=== PATIENT | male | born 1980 | race Hispanic/Latino ===

== ENCOUNTER → 2023-12-12 | Emergency (ER) | payer OTHER ==
--- OUTSIDE RECORDS SUMMARY | 2023-12-12 18:13 | XMS REPORT | Continuity of Care Document ---
Author Name Unknown Address [address] [facility] [address]. [address] [place] [address] [facility] thconnect Address [address] [facility]. [address] [place] [address] Care Team Providers Care Guitar Player Name Role Phone Pcp, Patient Does Not Have A Primary Care Physic maine SAYRA BONDS Attending Clinician Unavailabl Sayra Holley Attending Clinician [phone] Doctor Unassigned, Vian Attending Clinician U navailable Allergies, Adverse Reactions, Alerts Allergy Name Allergy Type Status Severity Reaction(s) Onset Date Inactive Date Treating Clinician Comments Source NO KNOWN ALLERGIE S Drug Class Active [facility] Social History Social Habit Start Date Stop Date Quantity Comments Source Exposure to SARS-CoV-2 (event) 2022-12-24 00:00:00 2023-01-03 14:00:00 Not sure [facility] Sex Assigned At 1980 00:00:00 1980 00:00:00 [facility] Smoking Status Start Date Stop Date Source Tobacco smoking consumption unknown [facility] Medications Ordered Medication Name Filled Medication Name Start Date Stop Date Current Medication? Ordering Clinician Indication Dosage Frequency Signature (SIG) Comments Components Source imiquimod 5 % cream 01-03 00:00: 00 Yes [id number] 1{packe t} Apply 1 Each to area(s) every Friday, Friday and Friday. Rub into area(s) until not visible. After 6-10 hours, wash off with mild soap and water. Max use - 16 weeks. [facility] imiquimod 5 % cream 01-03 00:00: 00 Yes [id number] 1{packe t} Apply 1 Each to area(s) every Friday, Friday and Friday. Rub into area(s) until not visible. After 6-10 hours, wash off with mild soap and water. Max use - 16 weeks. [facility] TAKE 1 TABLET DAILY. 2021-11 00:00: 00 No TAKE 1 TABLET DAILY. 04-16 00:00: 00 No levothyroxi ne 175 mcg tablet 04-16 00:00: 00 No 1mcg Dose Unknown 4-05 00:00: 00 No Dose Unknown 4-05 00:00: 00 No Dose Unknown 0 4-05 00:00: 00 No Dose Unknown 0 4-05 00:00: 00 No Dose Unknown 0 4-05 00:00: 00 No Dose Unknown 0 4-05 00:00: 00 No Dose Unknown 0 4-05 00:00: 00 No Dose Unknown 0 4-05 00:00: 00 No Dose Unknown 0 4-05 00:00: 00 No Dose Unknown 0 4-05 00:00: 00 No TAKE 1 TABLET DAILY. 2020-11 00:00: 00 No levothyroxi ne 175 mcg tablet 2020-11 00:00: 00 No 1mcg ibuprofen 800 mg tablet 2020-11 1-05 00:00: 00 No 1mg Dose Unknown 2020-11 1-05 00:00: 00 No TAKE 1 TABLET DAILY. 08-15 00:00: 00 No levothyroxi ne 175 mcg tablet 16 00:00: 00 No 1mcg TAKE 1 TABLET DAILY. 05-26 00:00: 00 No TAKE 1 TABLET DAILY. 03-08 00:00: 00 No levothyroxi ne 175 mcg tablet - 00:00: 00 No 1mcg levothyroxi ne 175 mcg tablet 0 2-08 00:00: 00 No 1mcg Altoprev 60 mg tablet,exte nded release 0 2-05 00:00: 00 No 1mg levothyroxi ne 175 mcg tablet 0 2-05 00:00: 00 No 1mcg Altoprev 60 mg tablet,exte nded release 1 2- 00:00: 00 No 1mg levothyroxi ne 175 mcg tablet 2019-11 2- 00:00: 00 No 1mcg Altoprev 60 mg tablet,exte nded release 2019-11 2- 00:00: 00 No 1mg levothyroxi ne 175 mcg tablet 2019-11 2- 00:00: 00 No 1mcg lovastatin 40 mg tablet 1 1-30 00:00: 00 No 1mg levothyroxi ne 150 mcg tablet 1 1-30 00:00: 00 No 1mcg lovastatin 40 mg tablet 0 8-05 00:00: 00 No 1mg levothyroxi ne 150 mcg tablet 0 8-05 00:00: 00 No 1mcg lovastatin 40 mg tablet 0 6-24 00:00: 00 No 1mg levothyroxi ne 150 mcg tablet 0 6-24 00:00: 00 No 1mcg lovastatin 40 mg tablet 0 5-10 00:00: 00 No 1mg levothyroxi ne 150 mcg tablet 0 5-10 00:00: 00 No 1mcg Augmentin 875 mg-125 mg tablet 0 3-16 00:00: 00 No 1mg levothyroxi ne 150 mcg tablet 0 1-30 00:00: 00 No 1mcg lovastatin 40 mg tablet 0 1-29 00:00: 00 No 1mg levothyroxi ne 175 mcg tablet 2018-11 2-02 00:00: 00 No 1mcg lovastatin 40 mg tablet 1 0-10 00:00: 00 No 1mg levothyroxi ne 200 mcg tablet 1 0-10 00:00: 00 No 1mcg lovastatin 40 mg tablet 0 9-19 00:00: 00 No 1mg levothyroxi ne 200 mcg tablet 0 919 00:00: 00 No 1mcg levothyroxi ne 200 mcg tablet 0 6-13 00:00: 00 No 1mcg levothyroxi ne 200 mcg tablet 0 219 00:00: 00 No 1mcg levothyroxi ne 50 mcg tablet 0 207 00:00: 00 No 1mcg lovastatin 40 mg tablet 0 2-05 00:00: 00 No 1mg levothyroxi ne 150 mcg tablet 0 205 00:00: 00 No 1mcg lovastatin 40 mg tablet 2017-11 018 00:00: 00 No 1mg levothyroxi ne 150 mcg tablet 2017-11 018 00:00: 00 No 1mcg lovastatin 40 mg tablet 0 06-02 00:00: 00 No 1mg levothyroxi ne 150 mcg tablet 0 06-02 00:00: 00 No 1mcg levothyroxi ne 150 mcg tablet 0 4 00:00: 00 No 1mcg lovastatin 40 mg tablet 0 316 00:00: 00 No 1mg lovastatin 40 mg tablet 0 316 00:00: 00 No 1mg lovastatin 40 mg tablet 0 316 00:00: 00 No 1mg lovastatin 40 mg tablet 0 209 00:00: 00 No 1mg levothyroxi ne 150 mcg tablet 0 209 00:00: 00 No 1mcg lovastatin 40 mg tablet 0 12-16 00:00: 00 No 1mg levothyroxi ne 125 mcg tablet 0 12-16 00:00: 00 No 1mcg levothyroxi ne 125 mcg tablet 0 12-16 00:00: 00 No 1mcg levothyroxi ne 125 mcg tablet 2016-11 00:00: 00 No 1mcg lovastatin 40 mg tablet 07-25 00:00: 00 No 1mg levothyroxi ne 125 mcg tablet 07-25 00:00: 00 No 1mcg lovastatin 20 mg tablet 06-17 00:00: 00 No 1mg levothyroxi ne 100 mcg tablet 06-17 00:00: 00 No 1mcg levothyroxi ne 100 mcg tablet 03-29 00:00: 00 No 1mcg levothyroxi ne 100 mcg tablet 03-27 00:00: 00 No 1mcg lovastatin 20 mg tablet 02-12 00:00: 00 No 1mg levothyroxi ne 100 mcg tablet 02-12 00:00: 00 No 1mcg lovastatin 10 mg tablet 01-14 00:00: 00 No 1mg levothyroxi ne 75 mcg tablet 01-14 00:00: 00 No 1mcg levothyroxi ne 75 mcg tablet 2015-11 00:00: 00 No 1mcg lovastatin 10 mg tablet 07-30 00:00: 00 No 1mg levothyroxi ne 50 mcg tablet 07-30 00:00: 00 No 1mcg cephALEXin (KEFLEX) 500 mg capsule 2012-11 00:00: 00 Yes 500mg Take 1 Cap by mouth 4 (four) times daily. [facility] HYDROcodone -acetaminop hen (NORCO 5) 5-325 mg tablet 2012-11 00:00: 00 Yes 1{tbl} Take 1-2 Tabs by mouth every 6 (six) hours as needed for Pain unrelieved by non-narcot ic analgesics . [facility] soft lense rinse-store (SALINE SOLUTION) Soln 2012-11 00:00: 00 Yes Use as directed [facility] cephALEXin (KEFLEX) 500 mg capsule 2012-11 00:00: 00 Yes 500mg Take 1 Cap by mouth 4 (four) times daily. [facility] HYDROcodone -acetaminop hen (NORCO 5) 5-325 mg tablet 2012-11 00:00: 00 Yes 1{tbl} Take 1-2 Tabs by mouth every 6 (six) hours as needed for Pain unrelieved by non-narcot ic analgesics . [facility] soft lense rinse-store (SALINE SOLUTION) Soln 2012-11 00:00: 00 Yes Use as directed [facility] cephALEXin (KEFLEX) 500 mg capsule 2012-11 00:00: 00 Yes 500mg Take 1 Cap by mouth 4 (four) times daily. [facility] HYDROcodone -acetaminop hen (NORCO 5) 5-325 mg tablet 2012-11 00:00: 00 Yes 1{tbl} Take 1-2 Tabs by mouth every 6 (six) hours as needed for Pain unrelieved by non-narcot ic analgesics . [facility] soft lense rinse-store (SALINE SOLUTION) Soln 2012-11 00:00: 00 Yes Use as directed [facility] Vital Signs Vital Name Observation Time Observation Value Comments S our Systolic blood pressure 2023-01-03 20:23:00 119 mm[Hg] [facility] Diastolic blood pressure 2023-01-03 20:23:00 79 mm[Hg] [facility] Heart rate 2023-01-03 20:23:00 67 /min [facility] Respiratory rate 2023-01-03 20:23:00 18 /min [facility] Body height 2023-01-03 20:23:00 160 cm [facility] Body weight 2023-01-03 20:23:00 98.431 kg [facility] BMI 2023-01-03 20:23:00 38.44 kg/m2 [facility] BP Systolic 2022-09-18 14:50:00 133 mm[Hg] BP Diastolic 2022-09-18 14:50:00 77 mm[Hg] Weight Measured 2022-09-18 14:50:00 221.60 pounds Height Measured 2022-09-18 14:50:00 69.00 inches Body Temperature 2022-09-18 14:50:00 98.80 degrees Heart Rate 2022-09-18 14:50:00 63.00 /min Respiratory Rate 2022-09-18 14:50:00 16.00 /min BP Systolic 2022-02-28 15:41:00 134 mm[Hg] BP Diastolic 2022-02-28 15:41:00 79 mm[Hg] Weight Measured 2022-02-28 15:41:00 196.00 pounds Height Measured 2022-02-28 15:41:00 69.00 inches Body Temperature 2022-02-28 15:41:00 98.30 degrees Heart Rate 2022-02-28 15:41:00 75.00 /min Respiratory Rate 2022-02-28 15:41:00 16.00 /min BP Systolic 2022-02-19 09:24:00 142 mm[Hg] BP Diastolic 2022-02-19 09:24:00 83 mm[Hg] Weight Measured 2022-02-19 09:24:00 195.60 pounds Height Measured 2022-02-19 09:24:00 69.00 inches Body Temperature 2022-02-19 09:24:00 98.00 degrees Heart Rate 2022-02-19 09:24:00 68.00 /min Respiratory Rate 2022-02-19 09:24:00 16.00 /min BP Systolic 2021-11-08 08:52:00 131 mm[Hg] BP Diastolic 2021-11-08 08:52:00 84 mm[Hg] Weight Measured 2021-11-08 08:52:00 196.20 pounds Height Measured 2021-11-08 08:52:00 69.00 inches Body Temperature 2021-11-08 08:52:00 98.20 degrees Heart Rate 2021-11-08 08:52:00 62.00 /min Respiratory Rate 2021-11-08 08:52:00 17.00 /min BP Systolic 2021-05-26 08:17:00 129 mm[Hg] BP Diastolic 2021-05-26 08:17:00 87 mm[Hg] Weight Measured 2021-05-26 08:17:00 197.40 pounds Height Measured 2021-05-26 08:17:00 69.00 inches Body Temperature 2021-05-26 08:17:00 98.40 degrees Heart Rate 2021-05-26 08:17:00 67.00 /min Respiratory Rate 2021-05-26 08:17:00 BP Systolic 2020-12-22 08:13:00 153 mm[Hg] BP Diastolic 2020-12-22 08:13:00 97 mm[Hg] Weight Measured 2020-12-22 08:13:00 213.60 pounds Height Measured 2020-12-22 08:13:00 69.00 inches Body Temperature 2020-12-22 08:13:00 98.40 degrees Heart Rate 2020-12-22 08:13:00 68.00 /min Respiratory Rate 2020-12-22 08:13:00 17.00 /min BP Systolic 2020-10-16 08:09:00 127 mm[Hg] BP Diastolic 2020-10-16 08:09:00 80 mm[Hg] Weight Measured 2020-10-16 08:09:00 221.40 pounds Height Measured 2020-10-16 08:09:00 69.00 inches Body Temperature 2020-10-16 08:09:00 98.20 degrees Heart Rate 2020-10-16 08:09:00 63.00 /min Respiratory Rate 2020-10-16 08:09:00 18.00 /min BP Systolic 2020-05-10 15:42:00 127 mm[Hg] BP Diastolic 2020-05-10 15:42:00 75 mm[Hg] Weight Measured 2020-05-10 15:42:00 216.20 pounds Height Measured 2020-05-10 15:42:00 69.00 inches Body Temperature 2020-05-10 15:42:00 97.50 degrees Heart Rate 2020-05-10 15:42:00 62.00 /min Respiratory Rate 2020-05-10 15:42:00 16.00 /min BP Systolic 2020-01-31 15:59:00 128 mm[Hg] BP Diastolic 2020-01-31 15:59:00 79 mm[Hg] Weight Measured 2020-01-31 15:59:00 213.00 pounds Height Measured 2020-01-31 15:59:00 69.00 inches Body Temperature 2020-01-31 15:59:00 98.10 degrees Heart Rate 2020-01-31 15:59:00 75.00 /min Respiratory Rate 2020-01-31 15:59:00 BP Systolic 2019-12-15 08:32:00 127 mm[Hg] BP Diastolic 2019-12-15 08:32:00 80 mm[Hg] Weight Measured 2019-12-15 08:32:00 215.00 pounds Height Measured 2019-12-15 08:32:00 69.00 inches Body Temperature 2019-12-15 08:32:00 98.30 degrees Heart Rate 2019-12-15 08:32:00 67.00 /min Respiratory Rate 2019-12-15 08:32:00 16.00 /min Procedures Procedure Date / Time Performed Performing Clinicia n Source REFERRAL- REQUEST/RESPONSE 2022-12-26 06:01:00 Doctor Unassigned, Vian [facility] Plan of Care Planned Activity Planned Date Details Comments Source Goal Plan of Care Note [code = 60229-0] Goal Plan of Care Note [code = 15433-8] Goal Plan of Care Note [code = 89055-2] Goal Plan of Care Note [code = 60652-3] Goal Plan of Care Note [code = 52535-9] Goal Plan of Care Note [code = 24358-6] Goal Plan of Care Note [code = 66078-1] Goal Plan of Care Note [code = 20364-7] Goal Plan of Care Note [code = 29748-2] Goal Plan of Care Note [code = 71925-0] Goal Plan of Care Note [code = 09667-8] Goal Plan of Care Note [code = 58201-2] Goal Plan of Care Note [code = 41852-1] Goal Plan of Care Note [code = 97960-7] Goal Plan of Care Note [code = 22887-8] Goal Plan of Care Note [code = 88637-7] Goal Plan of Care Note [code = 76179-2] Goal Plan of Care Note [code = 97539-3] Goal Plan of Care Note [code = 84090-7] Goal Plan of Care Note [code = 49459-1] Goal Plan of Care Note [code = 42273-6] Goal Plan of Care Note [code = 36473-4] Goal Plan of Care Note [code = 79976-9] Goal Plan of Care Note [code = 89747-4] Goal Plan of Care Note [code = 04175-6] Goal Plan of Care Note [code = 59796-0] Encounters Start Date/Time End Date/Time Encounter Type Admission Type Attending Clinicians Care Facility Care Department Encounter ID Source 2023-02-25 09:34:11 2023-02-25 09:34:11 Outpatient S[facility] [id number] Javier Ramos 2023-02-10 15:04:25 2023-02-10 15:04:25 Outpatient [facility] [id number] Javier Ramos 2023-01-03 14:30:00 2023-01-03 15:00:00 Outpatient R MOISES SAYRA [facility] [id number] [facility] 2023-01-03 14:30:00 2023-01-03 15:00:00 Office Visit Sayra Bonds [facility] [id number] [facility] 2022-12-26 14:52:38 2022-12-26 14:52:38 Outpatient [facility] [id number] Javier Ramos 2022-12-26 00:00:00 2022-12-26 00:00:00 Orders Only Doctor Unassigned, Vian [facility] [id number] [facility] 2022-12-14 09:49:25 2022-12-14 09:49:25 Outpatient SFA [facility] [id number] Javier Ramos 2022-09-18 14:41:28 2022-09-18 14:41:28 Outpatient SFA SFA [id number] Javier Ramos 2022-09-18 00:00:00 2022-09-18 00:00:00 Outpatient Visit [id number] Results Test Description Test Time Test Comments Results Result Co mments Source LIPID [id number] 06:15:23* Test Item Value Reference Range Interpretation Comme nts CHOLESTEROL (test code = 2210) 249 MG/DL <200 H TRIGLYCERIDES (test code = 2232) 229 MG/DL <150 H HDL CHOLESTEROL (test code = 2220) 28 MG/DL >39 L CALC LDL CHOL (test code = 2237) 179 MG/DL <100 H NOTE: CALCULATED LDL IS BASED ON ASHLEY-CULP METHOD WHICHINCLUDES ADJUSTABLE TRIGLYCERIDE:VLDL CHOLESTEROL RATIO.THIS FACTOR VARIES BY MEASURED TRIGLYCERIDE AND NON-HDLCHOLESTEROL CONCENTRATIONS WITH INCREASED CALCULATED LDL SEENIN HIGHER TRIGLYCERIDE OR LOWER NON-HDL SPECIMENS. FOR MOREINFORMATION, SEE CLIENT ANNOUNCEMENT AT [email or web address] RISK RATIO LDL/HDL (test code = 2238) 6.39 RATIO <3.55 H HEMOGLOBIN [id number] 04:00:51* Test Item Value Reference Range Interpretation Comme [facility] HEMOGLOBIN A1c (test code = 90312) 5.9 % 4.2-5.6 H [employer] GUIDELINES FOR HGB A1C: PREDIABETES/INCREASED RISK . . . . . . . 5.7-6.4% DIAGNOSIS OF DIABETES . . . . . . . . . >=6.5% WITH CONFIRMATION OR APPROPRIATE SYMPTOMS NOTE: ASSAY MAY BE AFFECTED BY HEMOGLOBINOPATHIES (SICKLE CELL ANEMIA, S-C DISEASE, OTHERS) OR ARTIFICIALLY LOWERED BY DECREASED RED CELL SURVIVAL (HEMOLYTIC ANEMIAS, BLOOD LOSS, ETC.). CONSIDER ALTERNATE TESTING OR LABORATORY CONSULTATION. CULTURE [id number] 11:18:56SPECIMEN NUMBER: [id number] CULTURE ONLY SPECIMEN NUMBER: [id number] SPECIMEN COMMENT: PENIS SOURCE:PENIS REPORT STATUS: FINAL DIRECT GRAM STAIN: NO WBCs SEEN NO BACTERIA SEEN FINAL REPORT: 12/19/2022 RARE NORMAL SKIN TALIA NO NEISSERIA GONORRHOEAE RECOVERED.HIV 1/2 4TH GEN, RFLX CONF 2022-12-17 04:12:25* Test Item Value Reference Range Interpretation Comme [facility] HIV 1/2 4TH GEN, RFLX CONF ( test code = 3514) NON-REACTIVE NON-REACTIVE HEPATITIS PANEL, [id number] 04:12:25* Test Item Value Reference Range Interpretation Comme nts HEPATITIS A IgM (test code = 18345) NON-REACTIVE NON-REACTIVE HEPATITIS B CORE IgM (test code = 4644) NON-REACTIVE NON-REACTIVE HEPATITIS B SURF AG (test code = 2739) NON-REACTIVE NON-REACTIVE HEPATITIS C ANTIBODY (test code = 4675) NON-REACTIVE NON-REACTIVE INTERPRETATION HEPATITIS A: (test code = 2552) (NOTE) Hepatitis A serology shows no evidence of acute hepatitis A. INTERPRETATION HEPATITIS B: (test code = 29498) (NOTE) Hepatitis B serology shows no evidence of acute hepatitis B andno indication of exposure to hepatitis B virus in the previous ricky eight months. INTERPRETATION HEPATITIS C: (test code = 20448) (NOTE) Hepatitis C serology shows no evidence of exposure to hepatitisC virus at this time. It can take up to 12 months after exposure tothe hepatitis C virus for antibodies to become detectable in the blood in certain patients. [id number] 00:10:37* Test Item Value Reference Range Interpretation Comme nts RPR RESULT (test code = 3501) NON-REACTIVE NON-REACTIVE RPR TITER (test code = 3500) NOT INDIC. TITER NOT INDIC. [facility] has important pathology staff changes effective 01/15/2023. New pathology staff will provide uninterrupted, excellent patient care and clinical consultation. See URL: [email or web address]. UNLESS OTHERWISE INDICATED, ALL TESTING PERFORMED AT [facility] [address] [place] [address] CLIA: [id number], CAP: [id number] CT/NG, NAAT, [id number] 19:53:33* Test Item Value Reference Range Interpretation Comme nts GONORRHEA, NAAT (test code = 69100) NEGATIVE NEGATIVE Testing is perfo rmed with Drew JOSE MANUEL 6800/8800 systems usingreal-time polymerase chain reaction (PCR) method. A negative result does not exclude low level infection, specimensampling error, or collection error. CHLAMYDIA, NAAT (test code = 66726) NEGATIVE NEGATIVE Testing is perfo rmed with Drew JOSE MANUEL 6800/8800 systems usingreal-time polymerase chain reaction (PCR) method. A negative result does not exclude low level infection, specimensampling error, or collection error. TSH, THIRD [id number] 06:25:57* Test Item Value Reference Range Interpretation Comme nts TSH, THIRD GENERATION (test code = 2821) 0.732 UIU/ML 0.400-4.100 UNLESS OTHERWISE INDICATED, [facility]FOR[facility] [address] [place] [id number] ARTIFICIAL LOG MACHINE OPERATOR: UNA MARTINEZ M.D. CLIA NUMBER [id number] [place]. [id number] LIPID [id number] 03:34:28* Test Item Value Reference Range Interpretation Comme nts CHOLESTEROL (test code = 2210) 217 MG/DL <200 H TRIGLYCERIDES (test code = 2232) 192 MG/DL <150 H HDL CHOLESTEROL (test code = 2220) 29 MG/DL >39 L CALC LDL CHOL (test code = 2237) 155 MG/DL <100 H NOTE: CALCULATED LDL IS BASED ON ASHLEY-CULP METHOD WHICHINCLUDES ADJUSTABLE TRIGLYCERIDE:VLDL CHOLESTEROL RATIO.THIS FACTOR VARIES BY MEASURED TRIGLYCERIDE AND NON-HDLCHOLESTEROL CONCENTRATIONS WITH INCREASED CALCULATED LDL SEENIN HIGHER TRIGLYCERIDE OR LOWER NON-HDL SPECIMENS. FOR MOREINFORMATION, SEE CLIENT ANNOUNCEMENT AT [email or web address] RISK RATIO LDL/HDL (test code = 2238) 5.34 RATIO <3.55 H COMPREHENSIVE METABOLIC [id number] 03:34:28* Test Item Value Reference Range Interpretation Comme nts GLUCOSE (test code = 2217) 99 MG/DL 70-99 BUN (test code = 2208) 11 MG/DL 6-20 CREATININE (test code = 2214) 0.53 MG/DL 0.80-1.40 L eGFR (2020 CKD-EPI) (test code = 29309) 128 ML/MIN/1.73 >60 CALC BUN/CREAT (test code = 2235) 21 RATIO 6-28 SODIUM (test code = 223) 140 MEQ/L 133-146 POTASSIUM (test code = 2228) 4.2 MEQ/L 3.5-5.4 CHLORIDE (test code = 2215) 105 MEQ/L 95-107 CARBON DIOXIDE (test code = 2206) 23 MEQ/L 19-31 CALCIUM (test code = 2209) 9.6 MG/DL 8.5-10.5 PROTEIN, TOTAL (test code = 222) 7.2 G/DL 6.1-8.3 ALBUMIN (test code = 2201) 4.5 G/DL 3.5-5.2 CALC GLOBULIN (test code = 2240) 2.7 G/DL 1.9-3.7 CALC A/G RATIO (test code = 2234) 1.7 RATIO 1.0-2.6 BILIRUBIN, TOTAL (test code = 2206) 0.4 MG/DL See_Comment [Automated me ssage] The system which generated this result transmitted reference range: <=1.2. The reference range was not used to interpret this result as normal/abnormal. ALKALINE PHOSPHATASE (test code = 2204) 86 U/L 40-119 AST (test code = 2218) 15 U/L 9-50 ALT (test code = 2219) 15 U/L 5-50 COMPREHENSIVE METABOLIC [id number] 00:00:00* Test Item Value Reference Range Interpretation Comme nts GLUCOSE (test code = 2217) 99 MG/DL BUN (test code = 2208) 11 MG/DL CREATININE (test code = 2214) 0.53 MG/DL eGFR (2020 CKD-EPI) (test code = 38927) 128 ML/MIN/1.73 CALC BUN/CREAT (test code = 2235) 21 RATIO SODIUM (test code = 2231) 140 MEQ/L POTASSIUM (test code = 2228) 4.2 MEQ/L CHLORIDE (test code = 2215) 105 MEQ/L CARBON DIOXIDE (test code = 2206) 23 MEQ/L CALCIUM (test code = 2209) 9.6 MG/DL PROTEIN, TOTAL (test code = 2229) 7.2 G/DL ALBUMIN (test code = 2201) 4.5 G/DL CALC GLOBULIN (test code = 2240) 2.7 G/DL CALC A/G RATIO (test code = 2234) 1.7 RATIO BILIRUBIN, TOTAL (test code = 2207) 0.4 MG/DL ALKALINE PHOSPHATASE (test code = 2204) 86 U/L AST (test code = 2218) 15 U/L ALT (test code = 2219) 15 U/L COMPREHENSIVE METABOLIC [id number] 00:00:00* Test Item Value Reference Range Interpretation Comme nts GLUCOSE (test code = 2217) 99 MG/DL BUN (test code = 2208) 11 MG/DL CREATININE (test code = 2214) 0.53 MG/DL eGFR (2020 CKD-EPI) (test code = 88040) 128 ML/MIN/1.73 CALC BUN/CREAT (test code = 2235) 21 RATIO SODIUM (test code = 2231) 140 MEQ/L POTASSIUM (test code = 2228) 4.2 MEQ/L CHLORIDE (test code = 2215) 105 MEQ/L CARBON DIOXIDE (test code = 2206) 23 MEQ/L CALCIUM (test code = 2209) 9.6 MG/DL PROTEIN, TOTAL (test code = 2229) 7.2 G/DL ALBUMIN (test code = 2201) 4.5 G/DL CALC GLOBULIN (test code = 2240) 2.7 G/DL CALC A/G RATIO (test code = 2234) 1.7 RATIO BILIRUBIN, TOTAL (test code = 2207) 0.4 MG/DL ALKALINE PHOSPHATASE (test code = 2204) 86 U/L AST (test code = 2218) 15 U/L ALT (test code = 2219) 15 U/L [id number] 00:00:00* Test Item Value Reference Range Interpretation Comme nts TSH, THIRD GENERATION (test code = 2821) 0.732 UIU/ML [id number] 00:00:00* Test Item Value Reference Range Interpretation Comme nts TSH, THIRD GENERATION (test code = 2821) 0.732 UIU/ML [id number] 00:00:00* Test Item Value Reference Range Interpretation Comme nts TSH, THIRD GENERATION (test code = 2821) 0.732 UIU/ML LIPID [id number] 00:00:00* Test Item Value Reference Range Interpretation Comme nts CHOLESTEROL (test code = 2210) 217 MG/DL TRIGLYCERIDES (test code = 2232) 192 MG/DL HDL CHOLESTEROL (test code = 2220) 29 MG/DL CALC LDL CHOL (test code = 2237) 155 MG/DL RISK RATIO LDL/HDL (test cod e = 2238) 5.34 RATIO LIPID [id number] 00:00:00* Test Item Value Reference Range Interpretation Comme nts CHOLESTEROL (test code = 2210) 217 MG/DL TRIGLYCERIDES (test code = 2232) 192 MG/DL HDL CHOLESTEROL (test code = 2220) 29 MG/DL CALC LDL CHOL (test code = 2237) 155 MG/DL RISK RATIO LDL/HDL (test cod e = 2238) 5.34 RATIO LIPID [id number] 00:00:00* Test Item Value Reference Range Interpretation Comme nts CHOLESTEROL (test code = 2210) 154 MG/DL TRIGLYCERIDES (test code = 2232) 190 MG/DL HDL CHOLESTEROL (test code = 2220) 30 MG/DL CALC LDL CHOL (test code = 2237) 96 MG/DL RISK RATIO LDL/HDL (test cod e = 2238) 3.20 RATIO LIPID [id number] 00:00:00* Test Item Value Reference Range Interpretation Comme nts CHOLESTEROL (test code = 2210) 154 MG/DL TRIGLYCERIDES (test code = 2232) 190 MG/DL HDL CHOLESTEROL (test code = 2220) 30 MG/DL CALC LDL CHOL (test code = 2237) 96 MG/DL RISK RATIO LDL/HDL (test cod e = 2238) 3.20 RATIO COMPREHENSIVE METABOLIC [id number] 00:00:00* Test Item Value Reference Range Interpretation Comme nts GLUCOSE (test code = 2217) 91 MG/DL BUN (test code = 2208) 8 MG/DL CREATININE (test code = 2214) 0.66 MG/DL eGFR AMER. (test cod e = 46147) 139 ML/MIN/1.73 eGFR NON- AMER. (test code = 13896) 120 ML/MIN/1.73 CALC BUN/CREAT (test code = 2235) 12 RATIO SODIUM (test code = 2231) 140 MEQ/L POTASSIUM (test code = 2228) 4.1 MEQ/L CHLORIDE (test code = 2215) 102 MEQ/L CARBON DIOXIDE (test code = 2206) 19 MEQ/L CALCIUM (test code = 2209) 9.5 MG/DL PROTEIN, TOTAL (test code = 2229) 7.1 G/DL ALBUMIN (test code = 2201) 4.6 G/DL CALC GLOBULIN (test code = 2240) 2.5 G/DL CALC A/G RATIO (test code = 2234) 1.8 RATIO BILIRUBIN, TOTAL (test code = 2207) 0.3 MG/DL ALKALINE PHOSPHATASE (test code = 2204) 85 U/L AST (test code = 2218) 17 U/L ALT (test code = 2219) 20 U/L COMPREHENSIVE METABOLIC [id number] 00:00:00* Test Item Value Reference Range Interpretation Comme nts GLUCOSE (test code = 2217) 91 MG/DL BUN (test code = 2208) 8 MG/DL CREATININE (test code = 2214) 0.66 MG/DL eGFR AMER. (test cod e = 95022) 139 ML/MIN/1.73 eGFR NON- AMER. (test code = 49403) 120 ML/MIN/1.73 CALC BUN/CREAT (test code = 2235) 12 RATIO SODIUM (test code = 2231) 140 MEQ/L POTASSIUM (test code = 2228) 4.1 MEQ/L CHLORIDE (test code = 2215) 102 MEQ/L CARBON DIOXIDE (test code = 2206) 19 MEQ/L CALCIUM (test code = 2209) 9.5 MG/DL PROTEIN, TOTAL (test code = 2229) 7.1 G/DL ALBUMIN (test code = 2201) 4.6 G/DL CALC GLOBULIN (test code = 2240) 2.5 G/DL CALC A/G RATIO (test code = 2234) 1.8 RATIO BILIRUBIN, TOTAL (test code = 2207) 0.3 MG/DL ALKALINE PHOSPHATASE (test code = 2204) 85 U/L AST (test code = 2218) 17 U/L ALT (test code = 2219) 20 U/L [id number] 00:00:00* Test Item Value Reference Range Interpretation Comme nts TSH, THIRD GENERATION (test code = 2821) 1.850 UIU/ML [id number] 00:00:00* Test Item Value Reference Range Interpretation Comme nts TSH, THIRD GENERATION (test code = 2821) 1.850 UIU/ML [id number] 00:00:00* Test Item Value Reference Range Interpretation Comme nts TSH, THIRD GENERATION (test code = 2821) 1.850 UIU/ML THYROID II PROFILE (T3U, T4, T7, TSH)2020-12-23 00:00:00* Test Item Value Reference Range Interpretation Comme nts T-UPTAKE (test code = 2817) 30.2 % THYROX. BIND. CAPAC. (test c ode = 30072) 1.1 T4 (THYROXINE) (test code = 2819) 6.2 UG/DL CORRECTED T4 (FTI) (test cod e = 2820) 5.6 UG/DL TSH, THIRD GENERATION (test code = 2821) 1.870 UIU/ML THYROID II PROFILE (T3U, T4, T7, TSH)2020-12-23 00:00:00* Test Item Value Reference Range Interpretation Comme nts T-UPTAKE (test code = 2817) 30.2 % THYROX. BIND. CAPAC. (test c ode = 34412) 1.1 T4 (THYROXINE) (test code = 2819) 6.2 UG/DL CORRECTED T4 (FTI) (test cod e = 2820) 5.6 UG/DL TSH, THIRD GENERATION (test code = 2821) 1.870 UIU/ML LIPID [id number] 00:00:00* Test Item Value Reference Range Interpretation Comme nts CHOLESTEROL (test code = 2210) 177 MG/DL TRIGLYCERIDES (test code = 2232) 236 MG/DL HDL CHOLESTEROL (test code = 2220) 30 MG/DL CALC LDL CHOL (test code = 2237) 111 MG/DL RISK RATIO LDL/HDL (test cod e = 2238) 3.70 RATIO LIPID [id number] 00:00:00* Test Item Value Reference Range Interpretation Comme nts CHOLESTEROL (test code = 2210) 177 MG/DL TRIGLYCERIDES (test code = 2232) 236 MG/DL HDL CHOLESTEROL (test code = 2220) 30 MG/DL CALC LDL CHOL (test code = 2237) 111 MG/DL RISK RATIO LDL/HDL (test cod e = 2238) 3.70 RATIO COMPREHENSIVE METABOLIC [id number] 00:00:00* Test Item Value Reference Range Interpretation Comme nts GLUCOSE (test code = 2217) 98 MG/DL BUN (test code = 2208) 11 MG/DL CREATININE (test code = 2214) 0.58 MG/DL eGFR AMER. (test cod e = 32211) 147 ML/MIN/1.73 eGFR NON- AMER. (test code = 64447) 127 ML/MIN/1.73 CALC BUN/CREAT (test code = 2235) 19 RATIO SODIUM (test code = 2231) 139 MEQ/L POTASSIUM (test code = 2228) 4.4 MEQ/L CHLORIDE (test code = 2215) 103 MEQ/L CARBON DIOXIDE (test code = 2206) 25 MEQ/L CALCIUM (test code = 2209) 9.7 MG/DL PROTEIN, TOTAL (test code = 2229) 7.4 G/DL ALBUMIN (test code = 2201) 4.5 G/DL CALC GLOBULIN (test code = 2240) 2.9 G/DL CALC A/G RATIO (test code = 2234) 1.6 RATIO BILIRUBIN, TOTAL (test code = 2207) 0.4 MG/DL ALKALINE PHOSPHATASE (test code = 2204) 73 U/L AST (test code = 2218) 23 U/L ALT (test code = 2219) 37 U/L COMPREHENSIVE METABOLIC [id number] 00:00:00* Test Item Value Reference Range Interpretation Comme nts GLUCOSE (test code = 2217) 98 MG/DL BUN (test code = 2208) 11 MG/DL CREATININE (test code = 2214) 0.58 MG/DL eGFR AMER. (test cod e = 55022) 147 ML/MIN/1.73 eGFR NON- AMER. (test code = 84026) 127 ML/MIN/1.73 CALC BUN/CREAT (test code = 2235) 19 RATIO SODIUM (test code = 2231) 139 MEQ/L POTASSIUM (test code = 2228) 4.4 MEQ/L CHLORIDE (test code = 2215) 103 MEQ/L CARBON DIOXIDE (test code = 2206) 25 MEQ/L CALCIUM (test code = 2209) 9.7 MG/DL PROTEIN, TOTAL (test code = 2229) 7.4 G/DL ALBUMIN (test code = 2201) 4.5 G/DL CALC GLOBULIN (test code = 2240) 2.9 G/DL CALC A/G RATIO (test code = 2234) 1.6 RATIO BILIRUBIN, TOTAL (test code = 2207) 0.4 MG/DL ALKALINE PHOSPHATASE (test code = 2204) 73 U/L AST (test code = 2218) 23 U/L ALT (test code = 2219) 37 U/L LIPID [id number] 00:00:00* Test Item Value Reference Range Interpretation Comme nts CHOLESTEROL (test code = 2210) 201 MG/DL TRIGLYCERIDES (test code = 2232) 232 MG/DL HDL CHOLESTEROL (test code = 2220) 28 MG/DL CALC LDL CHOL (test code = 2237) 136 MG/DL RISK RATIO LDL/HDL (test cod e = 2238) 4.86 RATIO LIPID [id number] 00:00:00* Test Item Value Reference Range Interpretation Comme nts CHOLESTEROL (test code = 2210) 201 MG/DL TRIGLYCERIDES (test code = 2232) 232 MG/DL HDL CHOLESTEROL (test code = 2220) 28 MG/DL CALC LDL CHOL (test code = 2237) 136 MG/DL RISK RATIO LDL/HDL (test cod e = 2238) 4.86 RATIO [id number] 00:00:00* Test Item Value Reference Range Interpretation Comme nts TSH, THIRD GENERATION (test code = 2821) 8.830 UIU/ML [id number] 00:00:00* Test Item Value Reference Range Interpretation Comme nts TSH, THIRD GENERATION (test code = 2821) 8.830 UIU/ML [id number] 00:00:00* Test Item Value Reference Range Interpretation Comme nts TSH, THIRD GENERATION (test code = 2821) 8.830 UIU/ML THYROID II PROFILE (T3U, T4, T7, TSH)2020-06-13 00:00:00* Test Item Value Reference Range Interpretation Comme nts T-UPTAKE (test code = 2817) 30.2 % THYROX. BIND. CAPAC. (test c ode = 22054) 1.1 T4 (THYROXINE) (test code = 2819) 6.6 UG/DL CORRECTED T4 (FTI) (test cod e = 2820) 6.0 UG/DL TSH, THIRD GENERATION (test code = 2821) 2.630 UIU/ML THYROID II PROFILE (T3U, T4, T7, TSH)2020-06-13 00:00:00* Test Item Value Reference Range Interpretation Comme nts T-UPTAKE (test code = 2817) 30.2 % THYROX. BIND. CAPAC. (test c ode = 41980) 1.1 T4 (THYROXINE) (test code = 2819) 6.6 UG/DL CORRECTED T4 (FTI) (test cod e = 2820) 6.0 UG/DL TSH, THIRD GENERATION (test code = 2821) 2.630 UIU/ML [id number] 00:00:00* Test Item Value Reference Range Interpretation Comme nts TSH, THIRD GENERATION (test code = 2821) 19.800 UIU/ML [id number] 00:00:00* Test Item Value Reference Range Interpretation Comme nts TSH, THIRD GENERATION (test code = 2821) 19.800 UIU/ML LIPID [id number] 00:00:00* Test Item Value Reference Range Interpretation Comme nts CHOLESTEROL (test code = 2210) 206 MG/DL TRIGLYCERIDES (test code = 2232) 236 MG/DL HDL CHOLESTEROL (test code = 2220) 27 MG/DL CALC LDL CHOL (test code = 2237) 141 MG/DL RISK RATIO LDL/HDL (test cod e = 2238) 5.22 RATIO LIPID [id number] 00:00:00* Test Item Value Reference Range Interpretation Comme nts CHOLESTEROL (test code = 2210) 206 MG/DL TRIGLYCERIDES (test code = 2232) 236 MG/DL HDL CHOLESTEROL (test code = 2220) 27 MG/DL CALC LDL CHOL (test code = 2237) 141 MG/DL RISK RATIO LDL/HDL (test cod e = 2238) 5.22 RATIO [id number] 00:00:00* Test Item Value Reference Range Interpretation Comme nts TSH, THIRD GENERATION (test code = 2821) 19.800 UIU/ML [id number] 00:00:00* Test Item Value Reference Range Interpretation Comme nts TSH, THIRD GENERATION (test code = 2821) 0.246 UIU/ML [id number] 00:00:00* Test Item Value Reference Range Interpretation Comme nts TSH, THIRD GENERATION (test code = 2821) 0.246 UIU/ML [id number] 00:00:00* Test Item Value Reference Range Interpretation Comme nts TSH, THIRD GENERATION (test code = 2821) 0.246 UIU/ML [id number] 00:00:00* Test Item Value Reference Range Interpretation Comme nts TSH, THIRD GENERATION (test code = 2821) 0.311 UIU/ML LIPID [id number] 00:00:00* Test Item Value Reference Range Interpretation Comme nts CHOLESTEROL (test code = 2210) 179 MG/DL TRIGLYCERIDES (test code = 2232) 162 MG/DL HDL CHOLESTEROL (test code = 2220) 28 MG/DL CALC LDL CHOL (test code = 2237) 119 MG/DL RISK RATIO LDL/HDL (test cod e = 2238) 4.24 RATIO LIPID [id number] 00:00:00* Test Item Value Reference Range Interpretation Comme nts CHOLESTEROL (test code = 2210) 179 MG/DL TRIGLYCERIDES (test code = 2232) 162 MG/DL HDL CHOLESTEROL (test code = 2220) 28 MG/DL CALC LDL CHOL (test code = 2237) 119 MG/DL RISK RATIO LDL/HDL (test cod e = 2238) 4.24 RATIO [id number] 00:00:00* Test Item Value Reference Range Interpretation Comme nts TSH, THIRD GENERATION (test code = 2821) 0.311 UIU/ML [id number] 00:00:00* Test Item Value Reference Range Interpretation Comme nts TSH, THIRD GENERATION (test code = 2821) 0.311 UIU/ML HEMOGLOBIN [id number] 00:00:00* Test Item Value Reference Range Interpretation Comme nts HEMOGLOBIN A1c (test code = 92990) 5.8 % HEMOGLOBIN [id number] 00:00:00* Test Item Value Reference Range Interpretation Comme nts HEMOGLOBIN A1c (test code = 06611) 5.8 % HEMOGLOBIN [id number] 00:00:00* Test Item Value Reference Range Interpretation Comme nts HEMOGLOBIN A1c (test code = 96147) 5.8 % LIPID [id number] 00:00:00* Test Item Value Reference Range Interpretation Comme nts CHOLESTEROL (test code = 2210) 199 MG/DL TRIGLYCERIDES (test code = 2232) 238 MG/DL HDL CHOLESTEROL (test code = 2220) 27 MG/DL CALC LDL CHOL (test code = 2237) 124 MG/DL RISK RATIO LDL/HDL (test cod e = 2238) 4.61 RATIO LIPID [id number] 00:00:00* Test Item Value Reference Range Interpretation Comme nts CHOLESTEROL (test code = 2210) 199 MG/DL TRIGLYCERIDES (test code = 2232) 238 MG/DL HDL CHOLESTEROL (test code = 2220) 27 MG/DL CALC LDL CHOL (test code = 2237) 124 MG/DL RISK RATIO LDL/HDL (test cod e = 2238) 4.61 RATIO COMPREHENSIVE METABOLIC [id number] 00:00:00* Test Item Value Reference Range Interpretation Comme nts GLUCOSE (test code = 2217) 104 MG/DL BUN (test code = 2208) 14 MG/DL CREATININE (test code = 2214) 0.59 MG/DL eGFR AMER. (test cod e = 24810) 147 ML/MIN/1.73 eGFR NON- AMER. (test code = 62604) 127 ML/MIN/1.73 CALC BUN/CREAT (test code = 2235) 24 RATIO SODIUM (test code = 2231) 141 MEQ/L POTASSIUM (test code = 2228) 4.3 MEQ/L CHLORIDE (test code = 2215) 103 MEQ/L CARBON DIOXIDE (test code = 2206) 23 MEQ/L CALCIUM (test code = 2209) 9.3 MG/DL PROTEIN, TOTAL (test code = 2229) 7.4 G/DL ALBUMIN (test code = 2201) 4.5 G/DL CALC GLOBULIN (test code = 2240) 2.9 G/DL CALC A/G RATIO (test code = 2234) 1.6 RATIO BILIRUBIN, TOTAL (test code = 2207) 0.4 MG/DL ALKALINE PHOSPHATASE (test code = 2204) 77 U/L AST (test code = 2218) 39 U/L ALT (test code = 2219) 61 U/L COMPREHENSIVE METABOLIC [id number] 00:00:00* Test Item Value Reference Range Interpretation Comme nts GLUCOSE (test code = 2217) 104 MG/DL BUN (test code = 2208) 14 MG/DL CREATININE (test code = 2214) 0.59 MG/DL eGFR AMER. (test cod e = 02892) 147 ML/MIN/1.73 eGFR NON- AMER. (test code = 63283) 127 ML/MIN/1.73 CALC BUN/CREAT (test code = 2235) 24 RATIO SODIUM (test code = 2231) 141 MEQ/L POTASSIUM (test code = 2228) 4.3 MEQ/L CHLORIDE (test code = 2215) 103 MEQ/L CARBON DIOXIDE (test code = 2206) 23 MEQ/L CALCIUM (test code = 2209) 9.3 MG/DL PROTEIN, TOTAL (test code = 2229) 7.4 G/DL ALBUMIN (test code = 2201) 4.5 G/DL CALC GLOBULIN (test code = 2240) 2.9 G/DL CALC A/G RATIO (test code = 2234) 1.6 RATIO BILIRUBIN, TOTAL (test code = 2207) 0.4 MG/DL ALKALINE PHOSPHATASE (test code = 2204) 77 U/L AST (test code = 2218) 39 U/L ALT (test code = 2219) 61 U/L [id number] 00:00:00* Test Item Value Reference Range Interpretation Comme nts TSH, THIRD GENERATION (test code = 2821) 4.790 UIU/ML [id number] 00:00:00* Test Item Value Reference Range Interpretation Comme nts TSH, THIRD GENERATION (test code = 2821) 4.790 UIU/ML [id number] 00:00:00* Test Item Value Reference Range Interpretation Comme nts TSH, THIRD GENERATION (test code = 2821) 4.790 UIU/ML CBC W/AUTO [id number] 00:00:00* Test Item Value Reference Range Interpretation Comme nts WBC (test code = 1001) 7.2 K/UL RBC (test code = 1002) 5.08 M/UL HEMOGLOBIN (test code = 1003) 15.3 G/DL HEMATOCRIT (test code = 1004) 44.9 % MCV (test code = 1005) 88.4 fL MCH (test code = 1006) 30.1 PG MCHC (test code = 1007) 34.1 G/DL RDW (test code = 1038) 12.9 % NEUTROPHILS (test code = 1008) 57.7 % LYMPHOCYTES (test code = 1010) 32.5 % MONOCYTES (test code = 1011) 5.6 % EOSINOPHILS (test code = 1012) 3.6 % BASOPHILS (test code = 1013) 0.6 % PLATELET COUNT (test code = 1015) 302 K/UL CBC W/AUTO [id number] 00:00:00* Test Item Value Reference Range Interpretation Comme nts WBC (test code = 1001) 7.2 K/UL RBC (test code = 1002) 5.08 M/UL HEMOGLOBIN (test code = 1003) 15.3 G/DL HEMATOCRIT (test code = 1004) 44.9 % MCV (test code = 1005) 88.4 fL MCH (test code = 1006) 30.1 PG MCHC (test code = 1007) 34.1 G/DL RDW (test code = 1038) 12.9 % NEUTROPHILS (test code = 1008) 57.7 % LYMPHOCYTES (test code = 1010) 32.5 % MONOCYTES (test code = 1011) 5.6 % EOSINOPHILS (test code = 1012) 3.6 % BASOPHILS (test code = 1013) 0.6 % PLATELET COUNT (test code = 1015) 302 K/UL CBC W/AUTO [id number] 00:00:00* Test Item Value Reference Range Interpretation Comme nts WBC (test code = 1001) 7.2 K/UL RBC (test code = 1002) 5.08 M/UL HEMOGLOBIN (test code = 1003) 15.3 G/DL HEMATOCRIT (test code = 1004) 44.9 % MCV (test code = 1005) 88.4 fL MCH (test code = 1006) 30.1 PG MCHC (test code = 1007) 34.1 G/DL RDW (test code = 1038) 12.9 % NEUTROPHILS (test code = 1008) 57.7 % LYMPHOCYTES (test code = 1010) 32.5 % MONOCYTES (test code = 1011) 5.6 % EOSINOPHILS (test code = 1012) 3.6 % BASOPHILS (test code = 1013) 0.6 % PLATELET COUNT (test code = 1015) 302 K/UL [id number] 00:00:00* Test Item Value Reference Range Interpretation Comme nts TESTOSTERONE (test code = 2830) 249 NG/DL [id number] 00:00:00* Test Item Value Reference Range Interpretation Comme nts TSH, THIRD GENERATION (test code = 2821) 50.250 UIU/ML [id number] 00:00:00* Test Item Value Reference Range Interpretation Comme nts TSH, THIRD GENERATION (test code = 2821) 50.250 UIU/ML [id number] 00:00:00* Test Item Value Reference Range Interpretation Comme nts TSH, THIRD GENERATION (test code = 2821) 50.250 UIU/ML LIPID [id number] 00:00:00* Test Item Value Reference Range Interpretation Comme nts CHOLESTEROL (test code = 2210) 207 MG/DL TRIGLYCERIDES (test code = 2232) 196 MG/DL HDL CHOLESTEROL (test code = 2220) 27 MG/DL CALC LDL CHOL (test code = 2237) 141 MG/DL RISK RATIO LDL/HDL (test cod e = 2238) 5.21 RATIO LIPID [id number] 00:00:00* Test Item Value Reference Range Interpretation Comme nts CHOLESTEROL (test code = 2210) 207 MG/DL TRIGLYCERIDES (test code = 2232) 196 MG/DL HDL CHOLESTEROL (test code = 2220) 27 MG/DL CALC LDL CHOL (test code = 2237) 141 MG/DL RISK RATIO LDL/HDL (test cod e = 2238) 5.21 RATIO COMPREHENSIVE METABOLIC [id number] 00:00:00* Test Item Value Reference Range Interpretation Comme nts GLUCOSE (test code = 2217) 107 MG/DL BUN (test code = 2208) 19 MG/DL CREATININE (test code = 2214) 0.66 MG/DL eGFR AMER. (test cod e = 62858) 141 ML/MIN/1.73 eGFR NON- AMER. (test code = 05004) 122 ML/MIN/1.73 CALC BUN/CREAT (test code = 2235) 29 RATIO SODIUM (test code = 2231) 141 MEQ/L POTASSIUM (test code = 2228) 4.3 MEQ/L CHLORIDE (test code = 2215) 102 MEQ/L CARBON DIOXIDE (test code = 2206) 25 MEQ/L CALCIUM (test code = 2209) 9.7 MG/DL PROTEIN, TOTAL (test code = 2229) 7.4 G/DL ALBUMIN (test code = 2201) 4.8 G/DL CALC GLOBULIN (test code = 2240) 2.6 G/DL CALC A/G RATIO (test code = 2234) 1.8 RATIO BILIRUBIN, TOTAL (test code = 2207) 0.3 MG/DL ALKALINE PHOSPHATASE (test code = 2204) 77 U/L AST (test code = 2218) 38 U/L ALT (test code = 2219) 59 U/L COMPREHENSIVE METABOLIC [id number] 00:00:00* Test Item Value Reference Range Interpretation Comme nts GLUCOSE (test code = 2217) 107 MG/DL BUN (test code = 2208) 19 MG/DL CREATININE (test code = 2214) 0.66 MG/DL eGFR AMER. (test cod e = 30432) 141 ML/MIN/1.73 eGFR NON- AMER. (test code = 78751) 122 ML/MIN/1.73 CALC BUN/CREAT (test code = 2235) 29 RATIO SODIUM (test code = 2231) 141 MEQ/L POTASSIUM (test code = 2228) 4.3 MEQ/L CHLORIDE (test code = 2215) 102 MEQ/L CARBON DIOXIDE (test code = 2206) 25 MEQ/L CALCIUM (test code = 2209) 9.7 MG/DL PROTEIN, TOTAL (test code = 2229) 7.4 G/DL ALBUMIN (test code = 2201) 4.8 G/DL CALC GLOBULIN (test code = 2240) 2.6 G/DL CALC A/G RATIO (test code = 2234) 1.8 RATIO BILIRUBIN, TOTAL (test code = 2207) 0.3 MG/DL ALKALINE PHOSPHATASE (test code = 2204) 77 U/L AST (test code = 2218) 38 U/L ALT (test code = 2219) 59 U/L [id number] 00:00:00* Test Item Value Reference Range Interpretation Comme nts TESTOSTERONE (test code = 2830) 249 NG/DL HEMOGLOBIN [id number] 00:00:00* Test Item Value Reference Range Interpretation Comme nts HEMOGLOBIN A1c (test code = 90581) 5.9 % COMPREHENSIVE METABOLIC [id number] 00:00:00* Test Item Value Reference Range Interpretation Comme nts GLUCOSE (test code = 2217) 95 MG/DL BUN (test code = 2208) 10 MG/DL CREATININE (test code = 2214) 0.59 MG/DL eGFR AMER. (test cod e = 40859) 148 ML/MIN/1.73 eGFR NON- AMER. (test code = 79048) 128 ML/MIN/1.73 CALC BUN/CREAT (test code = 2235) 17 RATIO SODIUM (test code = 2231) 141 MEQ/L POTASSIUM (test code = 2228) 4.7 MEQ/L CHLORIDE (test code = 2215) 101 MEQ/L CARBON DIOXIDE (test code = 2206) 29 MEQ/L CALCIUM (test code = 2209) 9.7 MG/DL PROTEIN, TOTAL (test code = 2229) 7.5 G/DL ALBUMIN (test code = 2201) 4.6 G/DL CALC GLOBULIN (test code = 2240) 2.9 G/DL CALC A/G RATIO (test code = 2234) 1.6 RATIO BILIRUBIN, TOTAL (test code = 2207) 0.2 MG/DL ALKALINE PHOSPHATASE (test code = 2204) 84 U/L AST (test code = 2218) 75 U/L ALT (test code = 2219) 119 U/L COMPREHENSIVE METABOLIC [id number] 00:00:00* Test Item Value Reference Range Interpretation Comme nts GLUCOSE (test code = 2217) 95 MG/DL BUN (test code = 2208) 10 MG/DL CREATININE (test code = 2214) 0.59 MG/DL eGFR AMER. (test cod e = 93098) 148 ML/MIN/1.73 eGFR NON- AMER. (test code = 30174) 128 ML/MIN/1.73 CALC BUN/CREAT (test code = 2235) 17 RATIO SODIUM (test code = 2231) 141 MEQ/L POTASSIUM (test code = 2228) 4.7 MEQ/L CHLORIDE (test code = 2215) 101 MEQ/L CARBON DIOXIDE (test code = 2206) 29 MEQ/L CALCIUM (test code = 2209) 9.7 MG/DL PROTEIN, TOTAL (test code = 2229) 7.5 G/DL ALBUMIN (test code = 2201) 4.6 G/DL CALC GLOBULIN (test code = 2240) 2.9 G/DL CALC A/G RATIO (test code = 2234) 1.6 RATIO BILIRUBIN, TOTAL (test code = 2207) 0.2 MG/DL ALKALINE PHOSPHATASE (test code = 2204) 84 U/L AST (test code = 2218) 75 U/L ALT (test code = 2219) 119 U/L LIPID [id number] 00:00:00* Test Item Value Reference Range Interpretation Comme nts CHOLESTEROL (test code = 2210) 266 MG/DL TRIGLYCERIDES (test code = 2232) 303 MG/DL HDL CHOLESTEROL (test code = 2220) 30 MG/DL CALC LDL CHOL (test code = 2237) 175 MG/DL RISK RATIO LDL/HDL (test cod e = 2238) 5.85 RATIO LIPID [id number] 00:00:00* Test Item Value Reference Range Interpretation Comme nts CHOLESTEROL (test code = 2210) 266 MG/DL TRIGLYCERIDES (test code = 2232) 303 MG/DL HDL CHOLESTEROL (test code = 2220) 30 MG/DL CALC LDL CHOL (test code = 2237) 175 MG/DL RISK RATIO LDL/HDL (test cod e = 2238) 5.85 RATIO [id number] 00:00:00* Test Item Value Reference Range Interpretation Comme nts TSH, THIRD GENERATION (test code = 2821) 39.770 UIU/ML [id number] 00:00:00* Test Item Value Reference Range Interpretation Comme nts TSH, THIRD GENERATION (test code = 2821) 39.770 UIU/ML [id number] 00:00:00* Test Item Value Reference Range Interpretation Comme nts TSH, THIRD GENERATION (test code = 2821) 39.770 UIU/ML HEMOGLOBIN [id number] 00:00:00* Test Item Value Reference Range Interpretation Comme nts HEMOGLOBIN A1c (test code = 70682) 5.9 % HEMOGLOBIN [id number] 00:00:00* Test Item Value Reference Range Interpretation Comme nts HEMOGLOBIN A1c (test code = 30955) 5.9 % [id number] 00:00:00* Test Item Value Reference Range Interpretation Comme nts TSH, THIRD GENERATION (test code = 2821) 4.740 UIU/ML [id number] 00:00:00* Test Item Value Reference Range Interpretation Comme nts TSH, THIRD GENERATION (test code = 2821) 4.740 UIU/ML [id number] 00:00:00* Test Item Value Reference Range Interpretation Comme nts TSH, THIRD GENERATION (test code = 2821) 4.740 UIU/ML LIPID [id number] 00:00:00* Test Item Value Reference Range Interpretation Comme nts CHOLESTEROL (test code = 2210) 222 MG/DL TRIGLYCERIDES (test code = 2232) 546 MG/DL HDL CHOLESTEROL (test code = 2220) 25 MG/DL CALC LDL CHOL (test code = 2237) NOTE MG/DL RISK RATIO LDL/HDL (test cod e = 2238) (NOTE) RATIO LIPID [id number] 00:00:00* Test Item Value Reference Range Interpretation Comme nts CHOLESTEROL (test code = 2210) 222 MG/DL TRIGLYCERIDES (test code = 2232) 546 MG/DL HDL CHOLESTEROL (test code = 2220) 25 MG/DL CALC LDL CHOL (test code = 2237) NOTE MG/DL RISK RATIO LDL/HDL (test cod e = 2238) (NOTE) RATIO LIPID PANEL [ADDED]2018-06-03 00:00:00* Test Item Value Reference Range Interpretation Comme nts CHOLESTEROL (test code = 2210) 231 MG/DL TRIGLYCERIDES (test code = 2232) 378 MG/DL HDL CHOLESTEROL (test code = 2220) 27 MG/DL CALC LDL CHOL (test code = 2237) 128 MG/DL RISK RATIO LDL/HDL (test cod e = 2238) 4.76 RATIO LIPID PANEL [ADDED]2018-06-03 00:00:00* Test Item Value Reference Range Interpretation Comme nts CHOLESTEROL (test code = 2210) 231 MG/DL TRIGLYCERIDES (test code = 2232) 378 MG/DL HDL CHOLESTEROL (test code = 2220) 27 MG/DL CALC LDL CHOL (test code = 2237) 128 MG/DL RISK RATIO LDL/HDL (test cod e = 2238) 4.76 RATIO TSH, THIRD GENERATION [ADDED]2018-06-03 00:00:00* Test Item Value Reference Range Interpretation Comme nts TSH, THIRD GENERATION (test code = 2821) 14.220 UIU/ML TSH, THIRD GENERATION [ADDED]2018-06-03 00:00:00* Test Item Value Reference Range Interpretation Comme nts TSH, THIRD GENERATION (test code = 2821) 14.220 UIU/ML TSH, THIRD GENERATION [ADDED]2018-06-03 00:00:00* Test Item Value Reference Range Interpretation Comme nts TSH, THIRD GENERATION (test code = 2821) 14.220 UIU/ML COMPREHENSIVE METABOLIC PANEL [ADDED]2018-06-03 00:00:00* Test Item Value Reference Range Interpretation Comme nts GLUCOSE (test code = 2217) 92 MG/DL BUN (test code = 2208) 10 MG/DL CREATININE (test code = 2214) 0.54 MG/DL eGFR AMER. (test cod e = 15111) 154 ML/MIN/1.73 eGFR NON- AMER. (test code = 36102) 133 ML/MIN/1.73 CALC BUN/CREAT (test code = 2235) 19 RATIO SODIUM (test code = 2231) 138 MEQ/L POTASSIUM (test code = 2228) 4.2 MEQ/L CHLORIDE (test code = 2215) 100 MEQ/L CARBON DIOXIDE (test code = 2206) 27 MEQ/L CALCIUM (test code = 2209) 9.3 MG/DL PROTEIN, TOTAL (test code = 2229) 7.5 G/DL ALBUMIN (test code = 2201) 4.6 G/DL CALC GLOBULIN (test code = 2240) 2.9 G/DL CALC A/G RATIO (test code = 2234) 1.6 RATIO BILIRUBIN, TOTAL (test code = 2207) 0.3 MG/DL ALKALINE PHOSPHATASE (test code = 2204) 76 U/L AST (test code = 2218) 25 U/L ALT (test code = 2219) 37 U/L COMPREHENSIVE METABOLIC PANEL [ADDED]2018-06-03 00:00:00* Test Item Value Reference Range Interpretation Comme nts GLUCOSE (test code = 2217) 92 MG/DL BUN (test code = 2208) 10 MG/DL CREATININE (test code = 2214) 0.54 MG/DL eGFR AMER. (test cod e = 22551) 154 ML/MIN/1.73 eGFR NON- AMER. (test code = 69338) 133 ML/MIN/1.73 CALC BUN/CREAT (test code = 2235) 19 RATIO SODIUM (test code = 2231) 138 MEQ/L POTASSIUM (test code = 2228) 4.2 MEQ/L CHLORIDE (test code = 2215) 100 MEQ/L CARBON DIOXIDE (test code = 2206) 27 MEQ/L CALCIUM (test code = 2209) 9.3 MG/DL PROTEIN, TOTAL (test code = 2229) 7.5 G/DL ALBUMIN (test code = 2201) 4.6 G/DL CALC GLOBULIN (test code = 2240) 2.9 G/DL CALC A/G RATIO (test code = 2234) 1.6 RATIO BILIRUBIN, TOTAL (test code = 2207) 0.3 MG/DL ALKALINE PHOSPHATASE (test code = 2204) 76 U/L AST (test code = 2218) 25 U/L ALT (test code = 2219) 37 U/L [id number] 00:00:00* Test Item Value Reference Range Interpretation Comme nts TSH (test code = 2821) 11.650 UIU/ML [id number] 00:00:00* Test Item Value Reference Range Interpretation Comme nts TSH (test code = 2821) 11.650 UIU/ML [id number] 00:00:00* Test Item Value Reference Range Interpretation Comme nts TSH (test code = 2821) 11.650 UIU/ML COMPREHENSIVE METABOLIC [id number] 00:00:00* Test Item Value Reference Range Interpretation Comme nts GLUCOSE (test code = 2217) 96 MG/DL BUN (test code = 2208) 8 MG/DL CREATININE (test code = 2214) 0.58 MG/DL eGFR AMER. (test cod e = 51173) 150 ML/MIN/1.73 eGFR NON- AMER. (test code = 89349) 129 ML/MIN/1.73 CALC BUN/CREAT (test code = 2235) 14 RATIO SODIUM (test code = 2231) 142 MEQ/L POTASSIUM (test code = 2228) 4.5 MEQ/L CHLORIDE (test code = 2215) 101 MEQ/L CARBON DIOXIDE (test code = 2206) 23 MEQ/L CALCIUM (test code = 2209) 9.6 MG/DL PROTEIN, TOTAL (test code = 2229) 7.4 G/DL ALBUMIN (test code = 2201) 4.4 G/DL CALC GLOBULIN (test code = 2240) 3.0 G/DL CALC A/G RATIO (test code = 2234) 1.5 RATIO BILIRUBIN, TOTAL (test code = 2207) 0.3 MG/DL ALKALINE PHOSPHATASE (test code = 2204) 83 U/L AST (test code = 2218) 24 U/L ALT (test code = 2219) 34 U/L LIPID [id number] 00:00:00* Test Item Value Reference Range Interpretation Comme nts CHOLESTEROL (test code = 2210) 181 MG/DL TRIGLYCERIDES (test code = 2232) 246 MG/DL HDL CHOLESTEROL (test code = 2220) 27 MG/DL CALC LDL CHOL (test code = 2237) 105 MG/DL RISK RATIO LDL/HDL (test cod e = 2238) 3.88 RATIO LIPID [id number] 00:00:00* Test Item Value Reference Range Interpretation Comme nts CHOLESTEROL (test code = 2210) 181 MG/DL TRIGLYCERIDES (test code = 2232) 246 MG/DL HDL CHOLESTEROL (test code = 2220) 27 MG/DL CALC LDL CHOL (test code = 2237) 105 MG/DL RISK RATIO LDL/HDL (test cod e = 2238) 3.88 RATIO [id number] 00:00:00* Test Item Value Reference Range Interpretation Comme nts TSH (test code = 2821) 21.390 UIU/ML [id number] 00:00:00* Test Item Value Reference Range Interpretation Comme nts TSH (test code = 2821) 21.390 UIU/ML [id number] 00:00:00* Test Item Value Reference Range Interpretation Comme nts TSH (test code = 2821) 21.390 UIU/ML COMPREHENSIVE METABOLIC [id number] 00:00:00* Test Item Value Reference Range Interpretation Comme nts GLUCOSE (test code = 2217) 96 MG/DL BUN (test code = 2208) 8 MG/DL CREATININE (test code = 2214) 0.58 MG/DL eGFR AMER. (test cod e = 34341) 150 ML/MIN/1.73 eGFR NON- AMER. (test code = 38576) 129 ML/MIN/1.73 CALC BUN/CREAT (test code = 2235) 14 RATIO SODIUM (test code = 2231) 142 MEQ/L POTASSIUM (test code = 2228) 4.5 MEQ/L CHLORIDE (test code = 2215) 101 MEQ/L CARBON DIOXIDE (test code = 2206) 23 MEQ/L CALCIUM (test code = 2209) 9.6 MG/DL PROTEIN, TOTAL (test code = 2229) 7.4 G/DL ALBUMIN (test code = 2201) 4.4 G/DL CALC GLOBULIN (test code = 2240) 3.0 G/DL CALC A/G RATIO (test code = 2234) 1.5 RATIO BILIRUBIN, TOTAL (test code = 2207) 0.3 MG/DL ALKALINE PHOSPHATASE (test code = 2204) 83 U/L AST (test code = 2218) 24 U/L ALT (test code = 2219) 34 U/L THYROID II PROFILE (T3U, T4, T7, TSH)2017-09-15 00:00:00* Test Item Value Reference Range Interpretation Comme nts T3 UPTAKE (test code = 2817) 30.5 % T4 (THYROXINE) (test code = 2819) 7.0 UG/DL CALCULATED T7 (FTI) (test co de = 2820) 2.14 TSH (test code = 2821) 0.807 UIU/ML THYROID II PROFILE (T3U, T4, T7, TSH)2017-09-15 00:00:00* Test Item Value Reference Range Interpretation Comme nts T3 UPTAKE (test code = 2817) 30.5 % T4 (THYROXINE) (test code = 2819) 7.0 UG/DL CALCULATED T7 (FTI) (test co de = 2820) 2.14 TSH (test code = 2821) 0.807 UIU/ML COMPREHENSIVE METABOLIC [id number] 00:00:00* Test Item Value Reference Range Interpretation Comme nts GLUCOSE (test code = 2217) 93 MG/DL BUN (test code = 2208) 14 MG/DL CREATININE (test code = 2214) 0.65 MG/DL eGFR AMER. (test cod e = 10174) 143 ML/MIN/1.73 eGFR NON- AMER. (test code = 49293) 123 ML/MIN/1.73 CALC BUN/CREAT (test code = 2235) 22 RATIO SODIUM (test code = 2231) 137 MEQ/L POTASSIUM (test code = 2228) 4.3 MEQ/L CHLORIDE (test code = 2215) 97 MEQ/L CARBON DIOXIDE (test code = 2206) 25 MEQ/L CALCIUM (test code = 2209) 9.2 MG/DL PROTEIN, TOTAL (test code = 2229) 7.1 G/DL ALBUMIN (test code = 2201) 4.4 G/DL CALC GLOBULIN (test code = 2240) 2.7 G/DL CALC A/G RATIO (test code = 2234) 1.6 RATIO BILIRUBIN, TOTAL (test code = 2207) 0.2 MG/DL ALKALINE PHOSPHATASE (test code = 2204) 80 U/L AST (test code = 2218) 16 U/L ALT (test code = 2219) 15 U/L LIPID [id number] 00:00:00* Test Item Value Reference Range Interpretation Comme nts CHOLESTEROL (test code = 2210) 224 MG/DL TRIGLYCERIDES (test code = 2232) 273 MG/DL HDL CHOLESTEROL (test code = 2220) 32 MG/DL CALC LDL CHOL (test code = 2237) 137 MG/DL RISK RATIO LDL/HDL (test cod e = 2238) 4.29 RATIO LIPID [id number] 00:00:00* Test Item Value Reference Range Interpretation Comme nts CHOLESTEROL (test code = 2210) 224 MG/DL TRIGLYCERIDES (test code = 2232) 273 MG/DL HDL CHOLESTEROL (test code = 2220) 32 MG/DL CALC LDL CHOL (test code = 2237) 137 MG/DL RISK RATIO LDL/HDL (test cod e = 2238) 4.29 RATIO THYROID II PROFILE (T3U, T4, T7, TSH)2017-07-24 00:00:00* Test Item Value Reference Range Interpretation Comme nts T3 UPTAKE (test code = 2817) 29.5 % T4 (THYROXINE) (test code = 2819) 4.7 UG/DL CALCULATED T7 (FTI) (test co de = 2820) 1.39 TSH (test code = 2821) 12.180 UIU/ML THYROID II PROFILE (T3U, T4, T7, TSH)2017-07-24 00:00:00* Test Item Value Reference Range Interpretation Comme nts T3 UPTAKE (test code = 2817) 29.5 % T4 (THYROXINE) (test code = 2819) 4.7 UG/DL CALCULATED T7 (FTI) (test co de = 2820) 1.39 TSH (test code = 2821) 12.180 UIU/ML COMPREHENSIVE METABOLIC [id number] 00:00:00* Test Item Value Reference Range Interpretation Comme nts GLUCOSE (test code = 2217) 93 MG/DL BUN (test code = 2208) 14 MG/DL CREATININE (test code = 2214) 0.65 MG/DL eGFR AMER. (test cod e = 45581) 143 ML/MIN/1.73 eGFR NON- AMER. (test code = 09584) 123 ML/MIN/1.73 CALC BUN/CREAT (test code = 2235) 22 RATIO SODIUM (test code = 2231) 137 MEQ/L POTASSIUM (test code = 2228) 4.3 MEQ/L CHLORIDE (test code = 2215) 97 MEQ/L CARBON DIOXIDE (test code = 2206) 25 MEQ/L CALCIUM (test code = 2209) 9.2 MG/DL PROTEIN, TOTAL (test code = 2229) 7.1 G/DL ALBUMIN (test code = 2201) 4.4 G/DL CALC GLOBULIN (test code = 2240) 2.7 G/DL CALC A/G RATIO (test code = 2234) 1.6 RATIO BILIRUBIN, TOTAL (test code = 2207) 0.2 MG/DL ALKALINE PHOSPHATASE (test code = 2204) 80 U/L AST (test code = 2218) 16 U/L ALT (test code = 2219) 15 U/L [id number] 00:00:00* Test Item Value Reference Range Interpretation Comme nts TSH (test code = 2821) 4.04 UIU/ML [id number] 00:00:00* Test Item Value Reference Range Interpretation Comme nts TSH (test code = 2821) 4.04 UIU/ML [id number] 00:00:00* Test Item Value Reference Range Interpretation Comme nts TSH (test code = 2821) 4.04 UIU/ML LIPID [id number] 00:00:00* Test Item Value Reference Range Interpretation Comme nts CHOLESTEROL (test code = 2210) 205 MG/DL TRIGLYCERIDES (test code = 2232) 206 MG/DL HDL CHOLESTEROL (test code = 2220) 30 MG/DL CALC LDL CHOL (test code = 2237) 134 MG/DL RISK RATIO LDL/HDL (test cod e = 2238) 4.46 RATIO LIPID [id number] 00:00:00* Test Item Value Reference Range Interpretation Comme nts CHOLESTEROL (test code = 2210) 205 MG/DL TRIGLYCERIDES (test code = 2232) 206 MG/DL HDL CHOLESTEROL (test code = 2220) 30 MG/DL CALC LDL CHOL (test code = 2237) 134 MG/DL RISK RATIO LDL/HDL (test cod e = 2238) 4.46 RATIO HEMOGLOBIN [id number] 00:00:00* Test Item Value Reference Range Interpretation Comme nts HEMOGLOBIN A1c (test code = 33439) 5.8 % HEMOGLOBIN [id number] 00:00:00* Test Item Value Reference Range Interpretation Comme nts HEMOGLOBIN A1c (test code = 47603) 5.8 % HEMOGLOBIN [id number] 00:00:00* Test Item Value Reference Range Interpretation Comme nts HEMOGLOBIN A1c (test code = 36950) 5.8 % [id number] 00:00:00* Test Item Value Reference Range Interpretation Comme nts TSH (test code = 2821) 12.44 UIU/ML [id number] 00:00:00* Test Item Value Reference Range Interpretation Comme nts TSH (test code = 2821) 12.44 UIU/ML [id number] 00:00:00* Test Item Value Reference Range Interpretation Comme nts TSH (test code = 2821) 12.44 UIU/ML COMPREHENSIVE METABOLIC [id number] 00:00:00* Test Item Value Reference Range Interpretation Comme nts GLUCOSE (test code = 2217) 95 MG/DL BUN (test code = 2208) 17 MG/DL CREATININE (test code = 2214) 0.64 MG/DL eGFR AMER. (test cod e = 31518) 145 ML/MIN/1.73 eGFR NON- AMER. (test code = 23501) 125 ML/MIN/1.73 CALC BUN/CREAT (test code = 2235) 27 RATIO SODIUM (test code = 2231) 141 MEQ/L POTASSIUM (test code = 2228) 4.5 MEQ/L CHLORIDE (test code = 2215) 101 MEQ/L CARBON DIOXIDE (test code = 2206) 24 MEQ/L CALCIUM (test code = 2209) 9.3 MG/DL PROTEIN, TOTAL (test code = 2229) 7.4 G/DL ALBUMIN (test code = 2201) 4.6 G/DL CALC GLOBULIN (test code = 2240) 2.8 G/DL CALC A/G RATIO (test code = 2234) 1.6 RATIO BILIRUBIN, TOTAL (test code = 2207) 0.3 MG/DL ALKALINE PHOSPHATASE (test code = 2204) 69 U/L AST (test code = 2218) 28 U/L ALT (test code = 2219) 34 U/L COMPREHENSIVE METABOLIC [id number] 00:00:00* Test Item Value Reference Range Interpretation Comme nts GLUCOSE (test code = 2217) 95 MG/DL BUN (test code = 2208) 17 MG/DL CREATININE (test code = 2214) 0.64 MG/DL eGFR AMER. (test cod e = 35107) 145 ML/MIN/1.73 eGFR NON- AMER. (test code = 88089) 125 ML/MIN/1.73 CALC BUN/CREAT (test code = 2235) 27 RATIO SODIUM (test code = 2231) 141 MEQ/L POTASSIUM (test code = 2228) 4.5 MEQ/L CHLORIDE (test code = 2215) 101 MEQ/L CARBON DIOXIDE (test code = 2206) 24 MEQ/L CALCIUM (test code = 2209) 9.3 MG/DL PROTEIN, TOTAL (test code = 2229) 7.4 G/DL ALBUMIN (test code = 2201) 4.6 G/DL CALC GLOBULIN (test code = 2240) 2.8 G/DL CALC A/G RATIO (test code = 2234) 1.6 RATIO BILIRUBIN, TOTAL (test code = 2207) 0.3 MG/DL ALKALINE PHOSPHATASE (test code = 2204) 69 U/L AST (test code = 2218) 28 U/L ALT (test code = 2219) 34 U/L THYROID II PROFILE (T3U, T4, T7, TSH)2016-08-30 00:00:00* Test Item Value Reference Range Interpretation Comme nts T3 UPTAKE (test code = 2817) 27.7 % T4 (THYROXINE) (test code = 2819) 4.1 UG/DL CALCULATED T7 (FTI) (test co de = 2820) 1.14 TSH (test code = 2821) 8.9 UIU/ML THYROID II PROFILE (T3U, T4, T7, TSH)2016-08-30 00:00:00* Test Item Value Reference Range Interpretation Comme nts T3 UPTAKE (test code = 2817) 27.7 % T4 (THYROXINE) (test code = 2819) 4.1 UG/DL CALCULATED T7 (FTI) (test co de = 2820) 1.14 TSH (test code = 2821) 8.9 UIU/ML HEMOGLOBIN [id number] 00:00:00* Test Item Value Reference Range Interpretation Comme nts HEMOGLOBIN A1c (test code = 54289) 6.0 % HEMOGLOBIN [id number] 00:00:00* Test Item Value Reference Range Interpretation Comme nts HEMOGLOBIN A1c (test code = 12480) 6.0 % COMPREHENSIVE METABOLIC [id number] 00:00:00* Test Item Value Reference Range Interpretation Comme nts GLUCOSE (test code = 2217) 100 MG/DL BUN (test code = 2208) 21 MG/DL CREATININE (test code = 2214) 0.54 MG/DL eGFR AMER. (test cod e = 06863) 155 ML/MIN/1.73 eGFR NON- AMER. (test code = 96823) 134 ML/MIN/1.73 CALC BUN/CREAT (test code = 2235) 39 RATIO SODIUM (test code = 2231) 141 MEQ/L POTASSIUM (test code = 2228) 4.7 MEQ/L CHLORIDE (test code = 2215) 98 MEQ/L CARBON DIOXIDE (test code = 2206) 26 MEQ/L CALCIUM (test code = 2209) 9.3 MG/DL PROTEIN, TOTAL (test code = 2229) 7.5 G/DL ALBUMIN (test code = 2201) 4.6 G/DL CALC GLOBULIN (test code = 2240) 2.9 G/DL CALC A/G RATIO (test code = 2234) 1.6 RATIO BILIRUBIN, TOTAL (test code = 2207) 0.2 MG/DL ALKALINE PHOSPHATASE (test code = 2204) 75 U/L AST (test code = 2218) 31 U/L ALT (test code = 2219) 50 U/L COMPREHENSIVE METABOLIC [id number] 00:00:00* Test Item Value Reference Range Interpretation Comme nts GLUCOSE (test code = 2217) 100 MG/DL BUN (test code = 2208) 21 MG/DL CREATININE (test code = 2214) 0.54 MG/DL eGFR AMER. (test cod e = 32760) 155 ML/MIN/1.73 eGFR NON- AMER. (test code = 60216) 134 ML/MIN/1.73 CALC BUN/CREAT (test code = 2235) 39 RATIO SODIUM (test code = 2231) 141 MEQ/L POTASSIUM (test code = 2228) 4.7 MEQ/L CHLORIDE (test code = 2215) 98 MEQ/L CARBON DIOXIDE (test code = 2206) 26 MEQ/L CALCIUM (test code = 2209) 9.3 MG/DL PROTEIN, TOTAL (test code = 2229) 7.5 G/DL ALBUMIN (test code = 2201) 4.6 G/DL CALC GLOBULIN (test code = 2240) 2.9 G/DL CALC A/G RATIO (test code = 2234) 1.6 RATIO BILIRUBIN, TOTAL (test code = 2207) 0.2 MG/DL ALKALINE PHOSPHATASE (test code = 2204) 75 U/L AST (test code = 2218) 31 U/L ALT (test code = 2219) 50 U/L LIPID [id number] 00:00:00* Test Item Value Reference Range Interpretation Comme nts CHOLESTEROL (test code = 2210) 250 MG/DL TRIGLYCERIDES (test code = 2232) 254 MG/DL HDL CHOLESTEROL (test code = 2220) 29 MG/DL CALC LDL CHOL (test code = 2237) 170 MG/DL RISK RATIO LDL/HDL (test cod e = 2238) 5.87 RATIO LIPID [id number] 00:00:00* Test Item Value Reference Range Interpretation Comme nts CHOLESTEROL (test code = 2210) 250 MG/DL TRIGLYCERIDES (test code = 2232) 254 MG/DL HDL CHOLESTEROL (test code = 2220) 29 MG/DL CALC LDL CHOL (test code = 2237) 170 MG/DL RISK RATIO LDL/HDL (test cod e = 2238) 5.87 RATIO THYROID II PROFILE (T3U, T4, T7, TSH)2016-07-27 00:00:00* Test Item Value Reference Range Interpretation Comme nts T3 UPTAKE (test code = 2817) 24.1 % T4 (THYROXINE) (test code = 2819) 3.7 UG/DL CALCULATED T7 (FTI) (test co de = 2820) 0.89 TSH (test code = 2821) 25.7 UIU/ML THYROID II PROFILE (T3U, T4, T7, TSH)2016-07-27 00:00:00* Test Item Value Reference Range Interpretation Comme nts T3 UPTAKE (test code = 2817) 24.1 % T4 (THYROXINE) (test code = 2819) 3.7 UG/DL CALCULATED T7 (FTI) (test co de = 2820) 0.89 TSH (test code = 2821) 25.7 UIU/ML CBC W/AUTO [id number] 00:00:00* Test Item Value Reference Range Interpretation Comme nts WBC (test code = 1001) 8.5 K/UL RBC (test code = 1002) 5.04 M/UL HEMOGLOBIN (test code = 1003) 15.1 G/DL HEMATOCRIT (test code = 1004) 45.4 % MCV (test code = 1005) 90.1 fL MCH (test code = 1006) 30.0 PG MCHC (test code = 1007) 33.3 G/DL RDW (test code = 1038) 13.1 % NEUTROPHILS (test code = 1008) 47.2 % LYMPHOCYTES (test code = 1010) 32.7 % MONOCYTES (test code = 1011) 7.1 % EOSINOPHILS (test code = 1012) 12.1 % BASOPHILS (test code = 1013) 0.9 % PLATELET COUNT (test code = 1015) 297 K/UL CBC W/AUTO [id number] 00:00:00* Test Item Value Reference Range Interpretation Comme nts WBC (test code = 1001) 8.5 K/UL RBC (test code = 1002) 5.04 M/UL HEMOGLOBIN (test code = 1003) 15.1 G/DL HEMATOCRIT (test code = 1004) 45.4 % MCV (test code = 1005) 90.1 fL MCH (test code = 1006) 30.0 PG MCHC (test code = 1007) 33.3 G/DL RDW (test code = 1038) 13.1 % NEUTROPHILS (test code = 1008) 47.2 % LYMPHOCYTES (test code = 1010) 32.7 % MONOCYTES (test code = 1011) 7.1 % EOSINOPHILS (test code = 1012) 12.1 % BASOPHILS (test code = 1013) 0.9 % PLATELET COUNT (test code = 1015) 297 K/UL CBC W/AUTO [id number] 00:00:00* Test Item Value Reference Range Interpretation Comme nts WBC (test code = 1001) 8.5 K/UL RBC (test code = 1002) 5.04 M/UL HEMOGLOBIN (test code = 1003) 15.1 G/DL HEMATOCRIT (test code = 1004) 45.4 % MCV (test code = 1005) 90.1 fL MCH (test code = 1006) 30.0 PG MCHC (test code = 1007) 33.3 G/DL RDW (test code = 1038) 13.1 % NEUTROPHILS (test code = 1008) 47.2 % LYMPHOCYTES (test code = 1010) 32.7 % MONOCYTES (test code = 1011) 7.1 % EOSINOPHILS (test code = 1012) 12.1 % BASOPHILS (test code = 1013) 0.9 % PLATELET COUNT (test code = 1015) 297 K/UL HEMOGLOBIN [id number] 00:00:00* Test Item Value Reference Range Interpretation Comme nts HEMOGLOBIN A1c (test code = 25247) 6.0 %
[2023-12-12 19:08] LABS: Absolute Lymphocytes (CBC) 2.4 K/uL (0.7-4.9); Hematocrit 41.9 % (39.6-49.0); Lymphocytes % 16.5 % (15.3-44.8); MCV 90.5 fL (80-100); MPV 7.5 fL (7.6-11.3); Platelets 272 thou/uL (152-406); RBC Red Blood Cell Count 4.63 M/uL (4.33-5.43)
[2023-12-12 19:27] LABS: Albumin 3.8 g/dL (3.4-5.0); Bilirubin Total 0.4 mg/dL (0.2-1.0); Potassium 3.7 mEq/L (3.5-5.1); Protein, Total 7.7 g/dL (6.4-8.2)
[2023-12-12 19:39] LABS: Specific Gravity 1.015 (1.005-1.030); Urine Bacteria None Seen /HPF (<20); Urine Bilirubin NEGATIVE (Negative); Urine Blood Negative (Negative); Urine Clarity Turbid (Clear); Urine Color Light-Yellow (Yellow); Urine Glucose NEGATIVE (Negative); Urine Protein NEGATIVE (Negative); Urine RBC <5 /HPF (None Seen); Urine Urobilinogen Normal (Normal)
--- NOTE | 2023-12-12 20:25 | RAD REPORT ---
EXAM DESCRIPTION: CTAbdomen Pelvis W Contrast - 12/12/2023 7:54 pm CLINICAL HISTORY: Abdominal pain. Right groin pain COMPARISON: No comparisons TECHNIQUE: Biphasic CT imaging of the abdomen and pelvis was performed with 100 ml non-ionic IV cont rast. All CT scans are performed using dose optimization technique as appropriate and may include automated exposure control or mA/KV adjustment according to patient size. FINDINGS: The lung bases are clear. The liver, spleen, pancreas, adrenal glands and kidneys are within normal limits. No bowel obstruction, free air, free fluid or abscess. Small umbilical hernia contains a small sectio n of the small intestine without obstruction. The appendix is normal. No evidence of significant lym phadenopathy. Moderate bilateral inguinal hernia containing fat. No suspicious bony findings. IMPRESSION: Small umbilical hernia containing a small section the small intestine without obstructio n. Moderate bilateral fat containing inguinal hernias.
--- NOTE | 2023-12-12 20:58 | ER ---
Nurse's Notes [facility] [place] Name: Reese Ramos Age: 43 yrs Sex: Male : 1980 Arrival Date: 12/12/2023 Time: 18:09 Bed 10 Private MD: Diagnosis: Bilateral inguinal hernia, without obstruction or gangrene, recurrent;Elevated white blood cell count Presentation: 12/12 18:14 Chief complaint: Patient states: "I woke up today having pain in my right testicle. It mb9 feels like there is a lump and swollen. I have pressure in my stomach.". Coronavirus screen: Vaccine status: Patient reports being unvaccinated. Ebola Screen: No symptoms or risks identified at this time. Initial Sepsis Screen: Does the patient meet any 2 criteria? No. Patient's initial sepsis screen is negative. Does the patient have a suspected source of infection? No. Patient's initial sepsis screen is negative. Risk Assessment: Do you want to hurt yourself or someone else? Patient reports no desire to harm self or others. Onset of symptoms was December 12, 2023. 18:14 Method Of Arrival: Ambulatory mb9 18:14 Acuity: JEREMIAS 3 mb9 Triage Assessment: 18:17 General: Appears in no apparent distress. Behavior is calm, cooperative. Pain: mb9 Complains of pain in testicle Pain radiates to abdomen. EENT: No signs and/or symptoms were reported regarding the EENT system. Neuro: Spaulding Agitation-Sedation Scale (RASS): 0 - Alert and Calm Level of Consciousness is awake, alert, obeys commands, Oriented to person, place, time, situation, Appropriate for age. Respiratory: Airway is patent. : Reports pain scrotum. Musculoskeletal: Range of motion: intact in all extremities. Historical: - Allergies: 18:16 No Known Allergies; mb9 - Home Meds: 18:16 None [Active]; mb9 - PMHx: 18:16 None; mb9 - PSHx: 18:16 Left AKA; right BKA; mb9 - Immunization history:: Adult Immunizations up to date. - Social history:: Smoking status: Patient reports the use of cigarette tobacco products, denies chronic smoking, but will smoke occasionally. - Family history:: not pertinent. Screenin:13 [facility] ED Fall Risk Assessment (Adult) History of falling in the last 3 months, mb9 including since admission No falls in past 3 months (0 pts) Confusion or Disorientation No (0 pts) Intoxicated or Sedated No (0 pts) Impaired Gait No (0 pts) Mobility Assist Device Used No (0 pt) Altered Elimination No (0 pt) Score/Fall Risk Level 0 - 2 = Low Risk Oriented to surroundings, Maintained a safe environment, Educated pt \\T\\ family on fall prevention, incl call for assistance when getting out of bed. Abuse screen: Denies threats or abuse. Nutritional screening: No deficits noted. Tuberculosis screening: No symptoms or risk factors identified. Assessment: 19:13 Reassessment: No changes from previously documented assessment. Patient and/or family mb9 updated on plan of care and expected duration. Pain level reassessed. Patient is alert, oriented x 3, equal unlabored respirations, skin warm/dry/pink. 20:27 Reassessment: No changes from previously documented assessment. Patient and/or family mb9 updated on plan of care and expected duration. Pain level reassessed. Patient is alert, oriented x 3, equal unlabored respirations, skin warm/dry/pink. 21:30 Reassessment: Patient appears in no apparent distress at this time. Patient and/or jb4 family updated on plan of care and expected duration. Pain level reassessed. Patient is alert, oriented x 3, equal unlabored respirations, skin warm/dry/pink. Vital Signs: 18:14 BP 149 / 95; Pulse 82; Resp 18; Temp 99; Pulse Ox 100% ; Weight 92.99 kg; Height 5 ft. mb9 5 in. ; 20:02 BP 136 / 88; Pulse 80; Resp 18; Pulse Ox 98% on R/A; mb9 21:30 BP 110 / 70; Pulse 78; Resp 16; Pulse Ox 95% on R/A; jb4 18:14 Body Mass Index 34.11 (92.99 kg, 165.1 cm) mb9 ED Course: 18:10 Patient arrived in ED. rg4 18:14 Arm band placed on. mb9 18:16 Triage completed. mb9 18:24 Jamey Aguiar MD is Attending Physician. sp4 19:00 Inserted saline lock: 20 gauge in right forearm, using aseptic technique. Blood mb9 collected. 19:13 Placed in gown. Bed in low position. Call light in reach. Side rails up X 1. Client mb9 placed on continuous cardiac and pulse oximetry monitoring. NIBP monitoring applied. 19:14 CBC with Diff Sent. mb9 19:14 CMP Sent. mb9 19:14 Lipase Sent. mb9 19:56 CT Abd/Pelvis - IV Contrast Only In Process Unspecified. EDMS 20:13 Attending Physician role handed off by Jamey Aguiar MD [facility] 20:13 Ladarius Bonds MD is Attending Physician. [facility] 20:27 Jeannette Jernigan, CATHERINE is Primary Nurse. mb9 20:57 Krish Lee MD is Referral Physician. chuck 21:30 No provider procedures requiring assistance completed. IV discontinued, intact, jb4 bleeding controlled, No redness/swelling at site. Pressure dressing applied. Administered Medications: No medications were administered Medication: 19:13 VIS not applicable for this client. mb9 Outcome: 20:58 Discharge ordered by . chuck 21:30 Discharged to home ambulatory, jb4 21:30 Condition: stable 21:30 Discharge instructions given to patient, Instructed on discharge instructions, follow up and referral plans. Demonstrated understanding of instructions, follow-up care, 21:31 Patient left the ED. jb4 Signatures: Dispatcher [employer] EDLadarius Wolf MD MD cha Garcia, Rubi rg4 Jus Lopez, RN RN jb4 Jeannette Jernigan, RN Jamey Saldivar MD MD sp4
--- NOTE | 2023-12-12 20:58 | EDPHYS ---
Physician Documentation [facility] Name: Reese Ramos Age: 43 yrs Sex: Male : 1980 Arrival Date: 12/12/2023 Time: 18:09 Bed 10 Private MD: ED Physician Ladarius Bonds HPI: 12/12 18:24 This 43 yrs old Male presents to ER via Ambulatory with complaints of sp4 Testicular Lump. 20:12 43-year-old male bilateral amputee presents with complaint of right groin to right sp4 testicular pain starting acutely today. Denied testicular mass or swelling. Historical: - Allergies: 18:16 No Known Allergies; mb9 - Home Meds: 18:16 None [Active]; mb9 - PMHx: 18:16 None; mb9 - PSHx: 18:16 Left AKA; right BKA; mb9 - Immunization history:: Adult Immunizations up to date. - Social history:: Smoking status: Patient reports the use of cigarette tobacco products, denies chronic smoking, but will smoke occasionally. - Family history:: not pertinent. ROS: 20:12 Constitutional: Negative for fever, chills, and weight loss, positive for right groin sp4 and right testicular pain 20:12 All other systems are negative, Exam: 20:12 Constitutional: This is a well developed, well nourished patient who is awake, alert, sp4 and in no acute distress. 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 Eyes: Pupils equal round and reactive to light, extra-ocular motions intact. Lids and lashes normal. Conjunctiva and sclera are not injected. Cornea within normal limits. Periorbital areas with no swelling, redness, or edema. ENT: Nares patent. No nasal discharge, no septal abnormalities noted. Tympanic membranes are normal and external auditory canals are clear. Oropharynx with no redness, swelling, or masses, exudates, or evidence of obstruction, uvula midline. Mucous membranes moist. Neck: Trachea midline, no thyromegaly or masses palpated, and no cervical lymphadenopathy. Supple, full range of motion without nuchal rigidity, or vertebral point tenderness. Chest/axilla: Normal chest wall appearance and motion. Nontender with no deformity. No lesions are appreciated. Cardiovascular: Regular rate and rhythm with a normal S1 and S2. No gallops, murmurs, or rubs. Normal PMI, no JVD. No pulse deficits. Respiratory: Lungs have equal breath sounds bilaterally, clear to auscultation and percussion. No rales, rhonchi or wheezes noted. No increased work of breathing, no retractions or nasal flaring. Abdomen/GI: Soft, non-tender, with normal bowel sounds. No distension or tympany. No guarding or rebound. No evidence of tenderness throughout. Small bilateral inguinal hernias that are not prolapsed into the scrotum. No sign of incarceration or strangulation Back: No spinal tenderness. No costovertebral tenderness. Male : Normal genitalia with no discharge or lesions. Uncircumcised male, small bilateral inguinal hernias in the inguinal canals. Skin: Warm, dry with normal turgor. Normal color with no rashes, no lesions, and no evidence of cellulitis. MS/ Extremity: Pulses equal, no cyanosis. 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 Cranial nerves II-XII grossly intact. Motor strength 5/5 in all extremities. Sensory grossly intact. Psych: Awake, alert, with orientation to person, place and time. Behavior, mood, and affect are within normal limits Vital Signs: 18:14 BP 149 / 95; Pulse 82; Resp 18; Temp 99; Pulse Ox 100% ; Weight 92.99 kg; Height 5 ft. mb9 5 in. ; 20:02 BP 136 / 88; Pulse 80; Resp 18; Pulse Ox 98% on R/A; mb9 21:30 BP 110 / 70; Pulse 78; Resp 16; Pulse Ox 95% on R/A; jb4 18:14 Body Mass Index 34.11 (92.99 kg, 165.1 cm) mb9 MDM: 18:25 Patient medically screened. sp4 20:12 Differential diagnosis: nonspecific abdominal pain, urinary retention, prostatitis, sp4 urethritis. Data reviewed: vital signs, nurses notes, lab test result(s), radiologic studies, CT scan. Consideration of Admission/Observation Escalation of care including admission/observation considered. Transition of care: After a detail discussion of the patient's case, care is transferred to Ladarius Bonds MD. 12/12 18:31 Order name: CBC with Diff; Complete Time: 19:47 sp4 12/12 18:31 Order name: CMP; Complete Time: 19:47 sp4 12/12 18:31 Order name: Lipase; Complete Time: 19:47 sp4 12/12 18:31 Order name: Urinalysis w/ reflexes; Complete Time: 19:47 sp4 12/12 19:42 Order name: Urine Culture [facility] 12/12 18:31 Order name: CT Abd/Pelvis - IV Contrast Only; Complete Time: 20:56 sp4 12/12 18:31 Order name: IV Saline Lock; Complete Time: 19:14 sp4 12/12 18:31 Order name: Labs collected and sent; Complete Time: 19:14 sp4 Administered Medications: No medications were administered Disposition Summary: 12/12/23 20:58 Discharge Ordered Notes: Location: Home chuck Problem: new chuck Symptoms: have improved chuck Condition: Stable chuck Diagnosis - Bilateral inguinal hernia, without obstruction or gangrene, recurrent chuck - Elevated white blood cell count chuck Followup: chuck - With: Private Physician - When: 2 - 3 days - Reason: Recheck today's complaints, Continuance of care, Re-evaluation by your physician Followup: chuck - With: Krish Lee MD - When: 2 - 3 days - Reason: Recheck today's complaints, Continuance of care, Re-evaluation by your physician Discharge Instructions: - Discharge Summary Sheet chuck - Hernia, Adult chuck - Inguinal Hernia, Adult, [id number] chuck - Hernia, Adult, [id number] chuck - Inguinal Hernia, Adult chuck Forms: - Medication Reconciliation Form chuck - Thank You Letter chuck - Antibiotic Education chuck - Prescription Opioid Use chuck - Patient Portal Instructions chuck - Leadership Thank You Letter chuck - Work release form jb4 Signatures: Dispatcher [employer] Ladarius Pina MD MD cha Breneman, Mary Beth, RN RN mb9 Jamey Aguiar MD MD sp4 Corrections: (The following items were deleted from the chart) 20:15 20:12 Constitutional: This is a well developed, well nourished patient who is awake, sp4 alert, and in no acute distress. 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 Eyes: Pupils equal round and reactive to light, extra-ocular motions intact. Lids and lashes normal. Conjunctiva and sclera are not injected. Cornea within normal limits. Periorbital areas with no swelling, redness, or edema. ENT: Nares patent. No nasal discharge, no septal abnormalities noted. Tympanic membranes are normal and external auditory canals are clear. Oropharynx with no redness, swelling, or masses, exudates, or evidence of obstruction, uvula midline. Mucous membranes moist. Neck: Trachea midline, no thyromegaly or masses palpated, and no cervical lymphadenopathy. Supple, full range of motion without nuchal rigidity, or vertebral point tenderness. Chest/axilla: Normal chest wall appearance and motion. Nontender with no deformity. No lesions are appreciated. Cardiovascular: Regular rate and rhythm with a normal S1 and S2. No gallops, murmurs, or rubs. Normal PMI, no JVD. No pulse deficits. Respiratory: Lungs have equal breath sounds bilaterally, clear to auscultation and percussion. No rales, rhonchi or wheezes noted. No increased work of breathing, no retractions or nasal flaring. Abdomen/GI: Soft, non-tender, with normal bowel sounds. No distension or tympany. No guarding or rebound. No evidence of tenderness throughout. Small bilateral inguinal hernias that are not prolapsed into the scrotum. No sign of incarceration or strangulation Back: No spinal tenderness. No costovertebral tenderness. Male : Normal genitalia with no discharge or lesions. Uncircumcised male, small bilateral inguinal hernias in the inguinal canals. Skin: Warm, dry with normal turgor. Normal color with no rashes, no lesions, and no evidence of cellulitis. MS/ Extremity: Pulses equal, no cyanosis. Neurovascular intact. Full, normal range of motion. Neuro: Awake and alert, GCS 15, oriented to person, place, time, and situation. Cranial nerves II-XII grossly intact. Motor strength 5/5 in all extremities. Sensory grossly intact. Psych: Awake, alert, with orientation to person, place and time. Behavior, mood, and affect are within normal limits sp4
[2023-12-13 00:34] VITALS: BP 110/70; TEMP 99; O2SAT 95
== END ==
LOC: ER 18:09
DX: K40.21 Bilateral inguinal hernia, without obstruction or gangrene, recurrent (principal); D72.829 Elevated white blood cell count, unspecified; F17.210 Nicotine dependence, cigarettes, uncomplicated; Z89.612 Acquired absence of left leg above knee; Z89.511 Acquired absence of right leg below knee
CPT/HCPCS: 87088; 85025; 81001; 87086; 36415; 83690; 80053; 74177; Q9967

== ENCOUNTER → 2023-12-17 | Emergency (ER) | payer OTHER ==
[~2023-12-17] MED LIST: AZITHROMYCIN 1 GM PACKET ONE; CEFTRIAXONE 1000 MG/VIAL ONE; KETOROLAC 30 MG/ML INJ ONE; Levofloxacin 750mg IV 750 MG/150 ML BAG IV ONE; MORPHINE 4 MG/ML SYR ONE; NA CHLORIDE 0.9% 1,000 ML ONE; ONDANSETRON 4 MG/2 ML VIAL ONE; SMZ./TMP. 800/160 MG TABLET ONE
--- OUTSIDE RECORDS SUMMARY | 2023-12-17 18:18 | XMS REPORT | Continuity of Care Document ---
Author Name Unknown Address [address] [place] [address] [facility] Address [address] [place] [address] Care Team Providers Care Belt Worker Name Role Phone Pcp, Patient Does Not Have A Primary Care Physic maine WILLIAM GRADY Attending Clinician Unavailab MARTIN Gil Attending Clinician Unavailable ZACARIAS BHAKTA Attending Clinician Unavailable Zacarias Bhakta MD Attending Clinician [phone] MAYRA BONDS Attending Clinician UnavailMayra Ruiz Attending Clinician [phone] Doctor Unassigned, Cyril Attending Clinician U navailable Payers Payer Name Policy Type Policy Number Effective Date Expirati on Date Source [employer] MP [employer] [employer] S[employer]ER 87 [place] 9 [id number] 2023 00:00:00 [employer] COMMERCIAL OUT OF NETWORK [id number] 2023 00:00:00 Allergies, Adverse Reactions, Alerts Allergy Name Allergy Type Status Severity Reaction(s) Onset Date Inactive Date Treating Clinician Comments Source NO KNOWN ALLERGIE S Drug Class Active [facility] Social History Social Habit Start Date Stop Date Quantity Comments Source History of tobacco use Cigarette Smoker Viktoria mccord - External Sexual orientation Yvonne Mcclure - External Tobacco use and exposure 2023-12-17 00:00:00 2023-12-17 00:00:00 Smokeless tobacco non-user Viktoria Mcclure - External Alcohol intake 2023-12-17 00:00:00 2023-12-17 00:00:00 Ex-drinker (finding) Viktoria Mcclure - External History of Social function 2023-12-17 00:00:00 2023-12-17 00:00:00 Viktoria Mcclure - External Exposure to SARS-CoV-2 (event) 2022-12-24 00:00:00 2023-01-03 14:00:00 Not sure [facility] Sex Assigned At 1980 00:00:00 1980 00:00:00 Viktoria Mcclure - External Smoking Status Start Date Stop Date Source Occasional tobacco smoker 2023-12-17 00:00:00 Viktoria Mcclure - External Tobacco smoking consumption unknown [facility] Medications Ordered Medication Name Filled Medication Name Start Date Stop Date Current Medication? Ordering Clinician Indication Dosage Frequency Signature (SIG) Comments Components Source Acetaminoph en-Codeine 300-30 MG oral Tablet 12-17 00:00: 00 01-16 05:59 :00 Yes [id number] 1{tbl} Q.25D Take 1 tablet by mouth every 6 hours as needed for pain. Viktoria Mcclure - Externa l iopamidol (ISOVUE 370-500 mL) injection 80 mL 12-16 03:27: 00 12-16 03:27 :00 No [id number] 80mL 80 mL, Intravenou s, ONCE, 1 dose, On Fri12/15/23 at 2145, Routine [facility] imiquimod 5 % cream - 00:00: 00 Yes [id number] 1{packe t} Apply 1 Each to area(s) every Friday, Friday and Friday. Rub into area(s) until not visible. After 6-10 hours, wash off with mild soap and water. Max use - 16 weeks. [facility] imiquimod 5 % cream - 00:00: 00 Yes [id number] 1{packe t} Apply 1 Each to area(s) every Friday, Friday and Friday. Rub into area(s) until not visible. After 6-10 hours, wash off with mild soap and water. Max use - 16 weeks. [facility] imiquimod 5 % cream 01-03 00:00: 00 Yes [id number] 1{packe t} Apply 1 Each to area(s) every Friday, Friday and Friday. Rub into area(s) until not visible. After 6-10 hours, wash off with mild soap and water. Max use - 16 weeks. [facility] TAKE 1 TABLET DAILY. 2021-11 00:00: 00 No TAKE 1 TABLET DAILY. 04-16 00:00: 00 No levothyroxi ne 175 mcg tablet 04-16 00:00: 00 No 1mcg Dose Unknown 0 4-05 00:00: 00 No Dose Unknown 0 4-05 00:00: 00 No Dose Unknown 0 4-05 00:00: 00 No Dose Unknown 2021-0 4-05 00:00: 00 No Dose Unknown 2021-0 4-05 00:00: 00 No Dose Unknown 2021-0 4-05 00:00: 00 No Dose Unknown 2021-0 4-05 00:00: 00 No Dose Unknown 2021-0 4-05 00:00: 00 No Dose Unknown 2021-0 4-05 00:00: 00 No Dose Unknown 2021-0 4-05 00:00: 00 No TAKE 1 TABLET DAILY. 2020-11 00:00: 00 No levothyroxi ne 175 mcg tablet 2020-11 00:00: 00 No 1mcg ibuprofen 800 mg tablet 2020-11 1-05 00:00: 00 No 1mg Dose Unknown 2020-11 1-05 00:00: 00 No TAKE 1 TABLET DAILY. 08-15 00:00: 00 No levothyroxi ne 175 mcg tablet -16 00:00: 00 No 1mcg TAKE 1 TABLET DAILY. 7- 00:00: 00 No TAKE 1 TABLET DAILY. 2021-0 4-22 00:00: 00 No levothyroxi ne 175 mcg tablet 0 4-22 00:00: 00 No 1mcg levothyroxi ne 175 [...] No 1mg levothyroxi ne 150 mcg tablet 2019-11 1-30 00:00: 00 No 1mcg lovastatin 40 [...] 1mg levothyroxi ne 175 mcg tablet 2018-11 2- 00:00: 00 No 1mcg lovastatin 40 mg tablet 1 0-10 00:00: 00 No 1mg levothyroxi ne 200 mcg tablet 2018-11 0-10 00:00: 00 No 1mcg lovastatin 40 mg tablet 0 19 00:00: 00 No 1mg levothyroxi ne 200 mcg tablet 0 08-05 00:00: 00 No 1mcg levothyroxi ne 200 mcg tablet 0 613 00:00: 00 No 1mcg levothyroxi ne 200 [...] No 1mcg lovastatin 40 mg tablet 0 17 00:00: 00 No 1mg levothyroxi ne 150 mcg tablet 0 17 00:00: 00 No 1mcg levothyroxi ne 150 [...] 1mg levothyroxi ne 125 mcg tablet 0 07-25 00:00: 00 No 1mcg lovastatin 20 [...] Cap by mouth 4 (four) times daily. [facility] HYDROcodone -acetaminop hen (NORCO 5) 5-325 mg tablet 2012-11 00:00: 00 Yes 1{tbl} Take 1-2 Tabs by mouth every 6 (six) hours as needed for Pain unrelieved by non-narcot ic analgesics . [facility] soft lense rinse-store (SALINE SOLUTION) Soln 2012-11 00:00: 00 Yes Use as directed [facility] cephALEXin (KEFLEX) 500 mg capsule 2012-11 00:00: 00 Yes 500mg Take 1 Cap by mouth 4 (four) times daily. [facility] HYDROcodone -acetaminop hen (NORCO 5) 5-325 mg tablet 2012-11 00:00: 00 Yes 1{tbl} Take 1-2 Tabs by mouth every 6 (six) hours as needed for Pain unrelieved by non-narcot ic analgesics . [facility] soft lense rinse-store (SALINE SOLUTION) Soln 2012-11 00:00: 00 Yes Use as directed [facility] cephALEXin (KEFLEX) 500 mg capsule 2012-11 00:00: 00 Yes 500mg Take 1 Cap by mouth 4 (four) times daily. [facility] HYDROcodone -acetaminop hen (NORCO 5) 5-325 mg tablet 2012-11 00:00: 00 Yes 1{tbl} Take 1-2 Tabs by mouth every 6 (six) hours as needed for Pain unrelieved by non-narcot ic analgesics . [facility] soft lense rinse-store (SALINE SOLUTION) [facility]: 00 Yes Use as directed [facility] cephALEXin (KEFLEX) 500 mg capsule 2012-11 00:00: 00 Yes 500mg Take 1 Cap by mouth 4 (four) times daily. [facility] HYDROcodone -acetaminop hen (NORCO 5) 5-325 mg tablet 2012-11 00:00: 00 Yes 1{tbl} Take 1-2 Tabs by mouth every 6 (six) hours as needed for Pain unrelieved by non-narcot ic analgesics . [facility] soft lense rinse-store (SALINE SOLUTION) [facility] 2012-11 00:00: 00 Yes Use as directed [facility] Vital Signs Vital Name Observation Time Observation Value Comments S ource Systolic blood pressure 2023-12-17 21:28:00 148 mm[Hg] Viktoria Perez ld - External Diastolic blood pressure 2023-12-17 21:28:00 86 mm[Hg] Viktoria arenas - External Heart rate 2023-12-17 21:26:00 100 /min Shara Mcclure - External Body temperature 2023-12-17 21:26:00 36.61 Yun Viktoria Mcclure - External Respiratory rate 2023-12-17 21:26:00 16 /min Viktoria Mcclure - External Body height 2023-12-17 21:26:00 167.6 cm Zoila Mcclure - External Body weight 2023-12-17 21:26:00 94.53 kg Zoila Mcclure - External BMI 2023-12-17 21:26:00 33.64 kg/m2 Zoila Mcclure - External Systolic blood pressure 2023-12-16 01:03:00 160 mm[Hg] [facility] Diastolic blood pressure 2023-12-16 01:03:00 93 mm[Hg] [facility] Heart rate 2023-12-16 01:03:00 86 /min [facility] Body temperature 2023-12-16 01:03:00 37.22 Yun [facility] Respiratory rate 2023-12-16 01:03:00 18 /min [facility] Body height 2023-12-16 01:03:00 [facility].6 cm [facility] Body weight 2023-12-16 01:03:00 97.07 kg [facility] BMI 2023-12-16 01:03:00 34.54 kg/m2 [facility] Oxygen saturation in Arterial blood by Pulse oximetry 2023-12-16 01:03:00 98 /min [facility] Systolic blood pressure 2023-01-03 20:23:00 119 mm[Hg] [facility] Diastolic blood pressure 2023-01-03 20:23:00 79 mm[Hg] [facility] Heart rate 2023-01-03 20:23:00 67 /min Un[facility] Respiratory rate 2023-01-03 20:23:00 18 /min [facility] Body height 2023-01-03 20:23:00 160 cm [facility] Body weight 2023-01-03 20:23:00 98.431 kg [facility] BMI 2023-01-03 20:23:00 38.44 kg/m2 [facility] BP Systolic 2022-09-18 14:50:00 133 mm[Hg] BP [...] / Time Performed Performing Clinicia n Source ASSIGNMENT OF BENEFITS 2023-12-16 03:57:26 Docto r Unassigned, Cyril [facility] BASIC METABOLIC PANEL (NA, K, CL, CO2, GLUCOSE, BUN, CREATININE, CA) 2023-12-16 02:54:00 Zacarias Bhakta [facility] CBC WITH DIFF 2023-12-16 02:54:00 Zacarias Bhakta [facility] NOTICE OF PRIVACY PRACTICES 2023-12-16 00:50:45 Doctor Unassigned, Cyril [facility] CONSENT/REFUSAL FOR DIAGNOSIS AND TREATMENT 2023-12-16 00:49:50 Doctor Unassigned, Cyril [facility] REFERRAL- REQUEST/RESPONSE 2022-12-26 06:01:00 Doctor Unassigned, Cyril [facility] Plan of Care Planned Activity Planned Date Details Comments Source Goal Plan of Care Note [code = 48070-0] Goal Plan of Care Note [code = 79800-6] Goal Plan of Care Note [code = 45088-3] Goal Plan of Care Note [code = 08168-2] Goal Plan of Care Note [code = 13653-2] Goal Plan of Care Note [code = 45095-3] Goal Plan of Care Note [code = 09260-4] Goal Plan of Care Note [code = 37829-4] Goal Plan of Care Note [code = 61014-7] Goal Plan of Care Note [code = 30813-7] Goal Plan of Care Note [code = 98418-0] Goal Plan of Care Note [code = 18926-5] Goal Plan of Care Note [code = 48516-0] Goal Plan of Care Note [code = 91299-3] Goal Plan of Care Note [code = 08597-1] Goal Plan of Care Note [code = 94830-8] Goal Plan of Care Note [code = 89895-5] Goal Plan of Care Note [code = 54352-4] Goal Plan of Care Note [code = 77671-7] Goal Plan of Care Note [code = 32400-2] Goal Plan of Care Note [code = 32285-0] Goal Plan of Care Note [code = 62803-9] Goal Plan of Care Note [code = 04810-2] Goal Plan of Care Note [code = 14376-2] Goal Plan of Care Note [code = 36471-9] Goal Plan of Care Note [code = 83747-8] Encounters Start Date/Time End Date/Time Encounter Type Admission Type Attending [facility] Facility Care Department Encounter ID Source 2023-12-19 13:45:00 2023-12-19 13:45:00 Outpatient WILLIAM GRADY [id number] Viktoria [facility] 2023-12-17 16:30:00 2023-12-17 16:30:00 Outpatient MARTIN OBRIEN [id number] [facility] 2023-12-15 19:05:00 2023-12-16 00:55:00 Emergency X ZACARIAS BHAKTA [facility] ERT [id number] [facility] 2023-12-15 19:05:00 2023-12-16 00:55:00 Emergency Zacarias Bhakta [facility] [id number] [id number] [id number] [facility] 2023-02-25 09:34:11 2023-02-25 09:34:11 Outpatient SFA SFA [id number] Javier Ramos 2023-02-10 15:04:25 2023-02-10 15:04:25 Outpatient SFA SFA [id number] Javier Ramos 2023-01-03 14:30:00 2023-01-03 15:00:00 Outpatient MAYRA BENTLEY [facility] [id number] [facility] 2023-01-03 14:30:00 2023-01-03 15:00:00 Office Visit Mayra Bonds [facility] [id number] [id number] [id number] [facility] 2022-12-26 14:52:38 2022-12-26 14:52:38 Outpatient SFA SFA [id number] Javier Ramos 2022-12-26 00:00:00 2022-12-26 00:00:00 Orders Only Doctor Unassigned, Cyril [facility] 1..840.114 350.1.13.10 4.2.7.2.686 [id number] [facility] 2022-12-14 09:49:25 2022-12-14 09:49:25 Outpatient SFA SFA [id number] Javier Ramos 2022-09-18 14:41:28 2022-09-18 14:41:28 Outpatient SFA SFA [id number] Javier Ramos 2022-09-18 00:00:00 2022-09-18 00:00:00 Outpatient Visit [id number] Results Test Description Test Time Test Comments Results Result Co mments Source LIPID [id number] 06:15:23* Test Item Value Reference Range Interpretation [...] SPECIMENS. FOR MOREINFORMATION, SEE CLIENT ANNOUNCEMENT AT [email or web address] RISK RATIO LDL/HDL (test code = 2238) 6.39 RATIO <3.55 H HEMOGLOBIN [id number] 04:00:51* Test Item Value Reference Range Interpretation Comme [facility] HEMOGLOBIN A1c (test code = 78649) 5.9 % 4.2-5.6 H [employer] GUIDELINES FOR HGB A1C: [...] CONSIDER ALTERNATE TESTING OR LABORATORY CONSULTATION. CULTURE [id number] 11:18:56SPECIMEN NUMBER: [id number] CULTURE ONLY SPECIMEN NUMBER: [id number] SPECIMEN COMMENT: PENIS SOURCE:PENIS REPORT STATUS: FINAL DIRECT GRAM STAIN: NO WBCs SEEN NO BACTERIA SEEN FINAL REPORT: 12/19/2022 RARE NORMAL SKIN TALIA NO NEISSERIA GONORRHOEAE RECOVERED.HIV 1/2 4TH GEN, RFLX CONF 2022-12-17 04:12:25* Test Item Value Reference Range Interpretation Comme [facility] HIV 1/2 4TH GEN, RFLX CONF ( test code = 3514) NON-REACTIVE NON-REACTIVE HEPATITIS PANEL, [id number] 04:12:25* Test Item Value Reference Range Interpretation Comme [facility] HEPATITIS A IgM (test code = 32341) NON-REACTIVE NON-REACTIVE HEPATITIS B CORE IgM (test code = 4644) NON-REACTIVE NON-REACTIVE HEPATITIS B SURF AG (test code = 2739) NON-REACTIVE NON-REACTIVE HEPATITIS C ANTIBODY (test code = 4675) NON-REACTIVE NON-REACTIVE INTERPRETATION HEPATITIS A: (test code = 2552) (NOTE) Hepatitis A serology shows no evidence of acute hepatitis A. INTERPRETATION HEPATITIS B: (test code = 92153) (NOTE) Hepatitis B serology shows no evidence of acute hepatitis B andno indication of exposure to hepatitis B virus in the previous ricky eight months. INTERPRETATION HEPATITIS C: (test code = 10301) (NOTE) Hepatitis C serology shows no evidence of exposure to hepatitisC virus at this time. It can take up to 12 months after exposure tothe hepatitis C virus for antibodies to become detectable in the blood in certain patients. [id number] 00:10:37* Test Item Value Reference Range Interpretation Comme nts RPR RESULT (test code = 3501) NON-REACTIVE NON-REACTIVE RPR TITER (test code = 3500) NOT INDIC. TITER NOT INDIC. [facility] has important pathology staff changes effective 01/15/2023. New pathology staff will provide uninterrupted, excellent patient care and clinical consultation. See URL: [email or web address]. UNLESS OTHERWISE INDICATED, ALL TESTING PERFORMED AT [facility] [address] [place] [address] CLIA: [id number], CAP: [id number] CT/NG, NAAT, [id number] 19:53:33* Test Item Value Reference Range Interpretation Comme nts GONORRHEA, NAAT (test code = 63304) NEGATIVE NEGATIVE Testing is perfo rmed with Drew JOSE MANUEL 6800/8800 systems usingreal-time polymerase chain reaction (PCR) method. A negative result does not exclude low level infection, specimensampling error, or collection error. CHLAMYDIA, NAAT (test code = 64993) NEGATIVE NEGATIVE Testing is perfo rmed with Drew JOSE MANUEL 6800/8800 systems usingreal-time polymerase chain reaction (PCR) method. A negative result does not exclude low level infection, specimensampling error, or collection error. TSH, THIRD [id number] 06:25:57* Test Item Value Reference Range Interpretation Comme nts TSH, THIRD GENERATION (test code = 2821) 0.732 UIU/ML 0.400-4.100 UNLESS OTHERWISE INDICATED, [facility]FOR[facility] [address] [place] [id number] GARMENT STEAMER: UNA MARTINEZ M.D. CLIA NUMBER [id number] [place]. [id number] LIPID [id number] 03:34:28* Test Item Value Reference Range Interpretation Comme nts CHOLESTEROL (test code = 2210) 217 MG/DL <200 H TRIGLYCERIDES (test code = 2232) 192 MG/DL <150 H HDL CHOLESTEROL (test code = 2219) 29 MG/DL >39 L CALC LDL CHOL (test code = 223) 155 MG/DL <100 H NOTE: CALCULATED LDL IS BASED ON ASHLEY-CULP METHOD WHICHINCLUDES ADJUSTABLE TRIGLYCERIDE:VLDL CHOLESTEROL RATIO.THIS FACTOR VARIES BY MEASURED TRIGLYCERIDE AND NON-HDLCHOLESTEROL CONCENTRATIONS WITH INCREASED CALCULATED LDL SEENIN HIGHER TRIGLYCERIDE OR LOWER NON-HDL SPECIMENS. FOR MOREINFORMATION, SEE CLIENT ANNOUNCEMENT AT [email or web address] RISK RATIO LDL/HDL (test code = 2237) 5.34 RATIO <3.55 H COMPREHENSIVE METABOLIC [id number] 03:34:28* Test Item Value Reference Range Interpretation Comme nts GLUCOSE (test code = 2216) 99 MG/DL 70-99 BUN (test code = 2207) 11 MG/DL 6-20 CREATININE (test code = 221) 0.53 MG/DL 0.80-1.40 L eGFR (2020 CKD-EPI) (test code = 71565) 128 ML/MIN/1.73 >60 CALC BUN/CREAT (test code = 2235) 21 RATIO 6-28 SODIUM (test code = 223) 140 MEQ/L 133-146 POTASSIUM (test code = 2228) 4.2 MEQ/L 3.5-5.4 CHLORIDE (test code = 2215) 105 MEQ/L 95-107 CARBON DIOXIDE (test code = 2206) 23 MEQ/L 19-31 CALCIUM (test code = 220) 9.6 MG/DL 8.5-10.5 PROTEIN, TOTAL (test code = 2228) 7.2 G/DL 6.1-8.3 ALBUMIN (test code = 2200) 4.5 G/DL 3.5-5.2 CALC GLOBULIN (test code = 2240) 2.7 G/DL 1.9-3.7 CALC A/G RATIO (test code = 223) 1.7 RATIO 1.0-2.6 BILIRUBIN, TOTAL (test code = 2206) 0.4 MG/DL See_Comment [Automated me ssage] The system which generated this result transmitted reference range: <=1.2. The reference range was not used to interpret this result as normal/abnormal. ALKALINE PHOSPHATASE (test code = 2203) 86 U/L 40-119 AST (test code = 2218) 15 U/L 9-50 ALT (test code = 2219) 15 U/L 5-50 LIPID [id number] 00:00:00* Test Item Value Reference Range Interpretation Comme nts CHOLESTEROL (test code = 2210) 217 MG/DL TRIGLYCERIDES (test code = 2232) 192 MG/DL HDL CHOLESTEROL (test code = 2220) 29 MG/DL CALC LDL CHOL (test code = 2237) 155 MG/DL RISK RATIO LDL/HDL (test cod e = 2238) 5.34 RATIO COMPREHENSIVE METABOLIC [id number] 00:00:00* Test Item Value Reference Range Interpretation Comme nts GLUCOSE (test code = 2217) 99 MG/DL BUN (test code = 2208) 11 MG/DL CREATININE (test code = 2214) 0.53 MG/DL eGFR (2020 CKD-EPI) (test code = 05165) 128 ML/MIN/1.73 CALC BUN/CREAT (test code = [...] code = 2219) 15 U/L COMPREHENSIVE METABOLIC [id number] 00:00:00* Test Item Value Reference Range Interpretation Comme nts GLUCOSE (test code = 2217) 99 MG/DL BUN (test code = 2208) 11 MG/DL CREATININE (test code = 2214) 0.53 MG/DL eGFR (2020 CKD-EPI) (test code = 30979) 128 ML/MIN/1.73 CALC BUN/CREAT (test code = [...] ALT (test code = 2219) 15 U/L [id number] 00:00:00* Test Item Value Reference Range Interpretation Comme nts TSH, THIRD GENERATION (test code = 2821) 0.732 UIU/ML [id number] 00:00:00* Test Item Value Reference Range Interpretation Comme nts TSH, THIRD GENERATION (test code = 2821) 0.732 UIU/ML [id number] 00:00:00* Test Item Value Reference Range Interpretation Comme nts TSH, THIRD GENERATION (test code = 2821) 0.732 UIU/ML LIPID [id number] 00:00:00* Test Item Value Reference Range Interpretation Comme nts CHOLESTEROL (test code = 2210) 217 MG/DL TRIGLYCERIDES (test code = 2232) 192 MG/DL HDL CHOLESTEROL (test code = 2220) 29 MG/DL CALC LDL CHOL (test code = 2237) 155 MG/DL RISK RATIO LDL/HDL (test cod e = 2238) 5.34 RATIO LIPID [id number] 00:00:00* Test Item Value Reference Range Interpretation Comme nts CHOLESTEROL (test code = 2210) 154 MG/DL TRIGLYCERIDES (test code = 2232) 190 MG/DL HDL CHOLESTEROL (test code = 2220) 30 MG/DL CALC LDL CHOL (test code = 2237) 96 MG/DL RISK RATIO LDL/HDL (test cod e = 2238) 3.20 RATIO LIPID [id number] 00:00:00* Test Item Value Reference Range Interpretation Comme nts CHOLESTEROL (test code = 2210) 154 MG/DL TRIGLYCERIDES (test code = 2232) 190 MG/DL HDL CHOLESTEROL (test code = 2220) 30 MG/DL CALC LDL CHOL (test code = 2237) 96 MG/DL RISK RATIO LDL/HDL (test cod e = 2238) 3.20 RATIO COMPREHENSIVE METABOLIC [id number] 00:00:00* Test Item Value Reference Range Interpretation Comme nts GLUCOSE (test code = 2217) 91 MG/DL BUN (test code = 2208) 8 MG/DL CREATININE (test code = 2214) 0.66 MG/DL eGFR AMER. (test cod e = 98969) 139 ML/MIN/1.73 eGFR NON- AMER. (test code = 69503) 120 ML/MIN/1.73 CALC BUN/CREAT (test code = [...] code = 2219) 20 U/L COMPREHENSIVE METABOLIC [id number] 00:00:00* Test Item Value Reference Range Interpretation Comme nts GLUCOSE (test code = 2217) 91 MG/DL BUN (test code = 2208) 8 MG/DL CREATININE (test code = 2214) 0.66 MG/DL eGFR AMER. (test cod e = 42738) 139 ML/MIN/1.73 eGFR NON- AMER. (test code = 95927) 120 ML/MIN/1.73 CALC BUN/CREAT (test code = [...] ALT (test code = 2219) 20 U/L [id number] 00:00:00* Test Item Value Reference Range Interpretation Comme nts TSH, THIRD GENERATION (test code = 2821) 1.850 UIU/ML [id number] 00:00:00* Test Item Value Reference Range Interpretation Comme nts TSH, THIRD GENERATION (test code = 2821) 1.850 UIU/ML [id number] 00:00:00* Test Item Value Reference Range Interpretation Comme nts TSH, THIRD GENERATION (test code = 2821) 1.850 UIU/ML COMPREHENSIVE METABOLIC [id number] 00:00:00* Test Item Value Reference Range Interpretation Comme nts GLUCOSE (test code = 2217) 98 MG/DL BUN (test code = 2208) 11 MG/DL CREATININE (test code = 2214) 0.58 MG/DL eGFR AMER. (test cod e = 79081) 147 ML/MIN/1.73 eGFR NON- AMER. (test code = 04224) 127 ML/MIN/1.73 CALC BUN/CREAT (test code = [...] ALT (test code = 2219) 37 U/L THYROID II PROFILE (T3U, T4, T7, TSH)2020-12-23 00:00:00* Test Item Value Reference Range Interpretation Comme nts T-UPTAKE (test code = 2817) 30.2 % THYROX. BIND. CAPAC. (test c ode = 66541) 1.1 T4 (THYROXINE) (test code = 2819) 6.2 UG/DL CORRECTED T4 (FTI) (test cod e = 2820) 5.6 UG/DL TSH, THIRD GENERATION (test code = 2821) 1.870 UIU/ML THYROID II PROFILE (T3U, T4, T7, TSH)2020-12-23 00:00:00* Test Item Value Reference Range Interpretation Comme nts T-UPTAKE (test code = 2817) 30.2 % THYROX. BIND. CAPAC. (test c ode = 98866) 1.1 T4 (THYROXINE) (test code = 2819) 6.2 UG/DL CORRECTED T4 (FTI) (test cod e = 2820) 5.6 UG/DL TSH, THIRD GENERATION (test code = 2821) 1.870 UIU/ML LIPID [id number] 00:00:00* Test Item Value Reference Range Interpretation Comme nts CHOLESTEROL (test code = 2210) 177 MG/DL TRIGLYCERIDES (test code = 2232) 236 MG/DL HDL CHOLESTEROL (test code = 2220) 30 MG/DL CALC LDL CHOL (test code = 2237) 111 MG/DL RISK RATIO LDL/HDL (test cod e = 2238) 3.70 RATIO LIPID [id number] 00:00:00* Test Item Value Reference Range Interpretation Comme nts CHOLESTEROL (test code = 2210) 177 MG/DL TRIGLYCERIDES (test code = 2232) 236 MG/DL HDL CHOLESTEROL (test code = 2220) 30 MG/DL CALC LDL CHOL (test code = 2237) 111 MG/DL RISK RATIO LDL/HDL (test cod e = 2238) 3.70 RATIO COMPREHENSIVE METABOLIC [id number] 00:00:00* Test Item Value Reference Range Interpretation Comme nts GLUCOSE (test code = 2217) 98 MG/DL BUN (test code = 2208) 11 MG/DL CREATININE (test code = 2214) 0.58 MG/DL eGFR AMER. (test cod e = 85621) 147 ML/MIN/1.73 eGFR NON- AMER. (test code = 79604) 127 ML/MIN/1.73 CALC BUN/CREAT (test code = [...] ALT (test code = 2219) 37 U/L [id number] 00:00:00* Test Item Value Reference Range Interpretation Comme nts TSH, THIRD GENERATION (test code = 2821) 8.830 UIU/ML [id number] 00:00:00* Test Item Value Reference Range Interpretation Comme nts TSH, THIRD GENERATION (test code = 2821) 8.830 UIU/ML LIPID [id number] 00:00:00* Test Item Value Reference Range Interpretation Comme nts CHOLESTEROL (test code = 2210) 201 MG/DL TRIGLYCERIDES (test code = 2232) 232 MG/DL HDL CHOLESTEROL (test code = 2220) 28 MG/DL CALC LDL CHOL (test code = 2237) 136 MG/DL RISK RATIO LDL/HDL (test cod e = 2238) 4.86 RATIO LIPID [id number] 00:00:00* Test Item Value Reference Range Interpretation Comme nts CHOLESTEROL (test code = 2210) 201 MG/DL TRIGLYCERIDES (test code = 2232) 232 MG/DL HDL CHOLESTEROL (test code = 2220) 28 MG/DL CALC LDL CHOL (test code = 2237) 136 MG/DL RISK RATIO LDL/HDL (test cod e = 2238) 4.86 RATIO [id number] 00:00:00* Test Item Value Reference Range Interpretation Comme nts TSH, THIRD GENERATION (test code = 2821) 8.830 UIU/ML THYROID II PROFILE (T3U, T4, T7, TSH)2020-06-13 00:00:00* Test Item Value Reference Range Interpretation Comme nts T-UPTAKE (test code = 2817) 30.2 % THYROX. BIND. CAPAC. (test c ode = 03914) 1.1 T4 (THYROXINE) (test code = 2819) 6.6 UG/DL CORRECTED T4 (FTI) (test cod e = 2820) 6.0 UG/DL TSH, THIRD GENERATION (test code = 2821) 2.630 UIU/ML THYROID II PROFILE (T3U, T4, T7, TSH)2020-06-13 00:00:00* Test Item Value Reference Range Interpretation Comme nts T-UPTAKE (test code = 2817) 30.2 % THYROX. BIND. CAPAC. (test c ode = 79044) 1.1 T4 (THYROXINE) (test code = 2819) 6.6 UG/DL CORRECTED T4 (FTI) (test cod e = 2820) 6.0 UG/DL TSH, THIRD GENERATION (test code = 2821) 2.630 UIU/ML [id number] 00:00:00* Test Item Value Reference Range Interpretation Comme nts TSH, THIRD GENERATION (test code = 2821) 19.800 UIU/ML [id number] 00:00:00* Test Item Value Reference Range Interpretation Comme nts TSH, THIRD GENERATION (test code = 2821) 19.800 UIU/ML [id number] 00:00:00* Test Item Value Reference Range Interpretation Comme nts TSH, THIRD GENERATION (test code = 2821) 19.800 UIU/ML LIPID [id number] 00:00:00* Test Item Value Reference Range Interpretation Comme nts CHOLESTEROL (test code = 2210) 206 MG/DL TRIGLYCERIDES (test code = 2232) 236 MG/DL HDL CHOLESTEROL (test code = 2220) 27 MG/DL CALC LDL CHOL (test code = 2237) 141 MG/DL RISK RATIO LDL/HDL (test cod e = 2238) 5.22 RATIO LIPID [id number] 00:00:00* Test Item Value Reference Range Interpretation Comme nts CHOLESTEROL (test code = 2210) 206 MG/DL TRIGLYCERIDES (test code = 2232) 236 MG/DL HDL CHOLESTEROL (test code = 2220) 27 MG/DL CALC LDL CHOL (test code = 2237) 141 MG/DL RISK RATIO LDL/HDL (test cod e = 2238) 5.22 RATIO [id number] 00:00:00* Test Item Value Reference Range Interpretation Comme nts TSH, THIRD GENERATION (test code = 2821) 0.246 UIU/ML [id number] 00:00:00* Test Item Value Reference Range Interpretation Comme nts TSH, THIRD GENERATION (test code = 2821) 0.246 UIU/ML [id number] 00:00:00* Test Item Value Reference Range Interpretation Comme nts TSH, THIRD GENERATION (test code = 2821) 0.246 UIU/ML [id number] 00:00:00* Test Item Value Reference Range Interpretation Comme nts TSH, THIRD GENERATION (test code = 2821) 0.311 UIU/ML [id number] 00:00:00* Test Item Value Reference Range Interpretation Comme nts TSH, THIRD GENERATION (test code = 2821) 0.311 UIU/ML [id number] 00:00:00* Test Item Value Reference Range Interpretation Comme nts TSH, THIRD GENERATION (test code = 2821) 0.311 UIU/ML LIPID [id number] 00:00:00* Test Item Value Reference Range Interpretation Comme nts CHOLESTEROL (test code = 2210) 179 MG/DL TRIGLYCERIDES (test code = 2232) 162 MG/DL HDL CHOLESTEROL (test code = 2220) 28 MG/DL CALC LDL CHOL (test code = 2237) 119 MG/DL RISK RATIO LDL/HDL (test cod e = 2238) 4.24 RATIO LIPID [id number] 00:00:00* Test Item Value Reference Range Interpretation Comme nts CHOLESTEROL (test code = 2210) 179 MG/DL TRIGLYCERIDES (test code = 2232) 162 MG/DL HDL CHOLESTEROL (test code = 2220) 28 MG/DL CALC LDL CHOL (test code = 2237) 119 MG/DL RISK RATIO LDL/HDL (test cod e = 2238) 4.24 RATIO CBC W/AUTO [id number] 00:00:00* Test Item Value Reference Range Interpretation [...] code = 1015) 302 K/UL CBC W/AUTO [id number] 00:00:00* Test Item Value Reference Range Interpretation [...] COUNT (test code = 1015) 302 K/UL HEMOGLOBIN [id number] 00:00:00* Test Item Value Reference Range Interpretation Comme nts HEMOGLOBIN A1c (test code = 74248) 5.8 % HEMOGLOBIN [id number] 00:00:00* Test Item Value Reference Range Interpretation Comme nts HEMOGLOBIN A1c (test code = 02047) 5.8 % HEMOGLOBIN [id number] 00:00:00* Test Item Value Reference Range Interpretation Comme nts HEMOGLOBIN A1c (test code = 95571) 5.8 % LIPID [id number] 00:00:00* Test Item Value Reference Range Interpretation Comme nts CHOLESTEROL (test code = 2210) 199 MG/DL TRIGLYCERIDES (test code = 2232) 238 MG/DL HDL CHOLESTEROL (test code = 2220) 27 MG/DL CALC LDL CHOL (test code = 2237) 124 MG/DL RISK RATIO LDL/HDL (test cod e = 2238) 4.61 RATIO LIPID [id number] 00:00:00* Test Item Value Reference Range Interpretation Comme nts CHOLESTEROL (test code = 2210) 199 MG/DL TRIGLYCERIDES (test code = 2232) 238 MG/DL HDL CHOLESTEROL (test code = 2220) 27 MG/DL CALC LDL CHOL (test code = 2237) 124 MG/DL RISK RATIO LDL/HDL (test cod e = 2238) 4.61 RATIO COMPREHENSIVE METABOLIC [id number] 00:00:00* Test Item Value Reference Range Interpretation Comme nts GLUCOSE (test code = 2217) 104 MG/DL BUN (test code = 2208) 14 MG/DL CREATININE (test code = 2214) 0.59 MG/DL eGFR AMER. (test cod e = 88797) 147 ML/MIN/1.73 eGFR NON- AMER. (test code = 19898) 127 ML/MIN/1.73 CALC BUN/CREAT (test code = [...] code = 2219) 61 U/L COMPREHENSIVE METABOLIC [id number] 00:00:00* Test Item Value Reference Range Interpretation Comme nts GLUCOSE (test code = 2217) 104 MG/DL BUN (test code = 2208) 14 MG/DL CREATININE (test code = 2214) 0.59 MG/DL eGFR AMER. (test cod e = 03116) 147 ML/MIN/1.73 eGFR NON- AMER. (test code = 55728) 127 ML/MIN/1.73 CALC BUN/CREAT (test code = [...] ALT (test code = 2219) 61 U/L [id number] 00:00:00* Test Item Value Reference Range Interpretation Comme nts TSH, THIRD GENERATION (test code = 2821) 4.790 UIU/ML [id number] 00:00:00* Test Item Value Reference Range Interpretation Comme nts TSH, THIRD GENERATION (test code = 2821) 4.790 UIU/ML [id number] 00:00:00* Test Item Value Reference Range Interpretation Comme nts TSH, THIRD GENERATION (test code = 2821) 4.790 UIU/ML CBC W/AUTO [id number] 00:00:00* Test Item Value Reference Range Interpretation [...] COUNT (test code = 1015) 302 K/UL [id number] 00:00:00* Test Item Value Reference Range Interpretation Comme nts TESTOSTERONE (test code = 2830) 249 NG/DL [id number] 00:00:00* Test Item Value Reference Range Interpretation Comme nts TSH, THIRD GENERATION (test code = 2821) 50.250 UIU/ML [id number] 00:00:00* Test Item Value Reference Range Interpretation Comme nts TSH, THIRD GENERATION (test code = 2821) 50.250 UIU/ML [id number] 00:00:00* Test Item Value Reference Range Interpretation Comme nts TSH, THIRD GENERATION (test code = 2821) 50.250 UIU/ML LIPID [id number] 00:00:00* Test Item Value Reference Range Interpretation Comme nts CHOLESTEROL (test code = 2210) 207 MG/DL TRIGLYCERIDES (test code = 2232) 196 MG/DL HDL CHOLESTEROL (test code = 2220) 27 MG/DL CALC LDL CHOL (test code = 2237) 141 MG/DL RISK RATIO LDL/HDL (test cod e = 2238) 5.21 RATIO LIPID [id number] 00:00:00* Test Item Value Reference Range Interpretation Comme nts CHOLESTEROL (test code = 2210) 207 MG/DL TRIGLYCERIDES (test code = 2232) 196 MG/DL HDL CHOLESTEROL (test code = 2220) 27 MG/DL CALC LDL CHOL (test code = 2237) 141 MG/DL RISK RATIO LDL/HDL (test cod e = 2238) 5.21 RATIO COMPREHENSIVE METABOLIC [id number] 00:00:00* Test Item Value Reference Range Interpretation Comme nts GLUCOSE (test code = 2217) 107 MG/DL BUN (test code = 2208) 19 MG/DL CREATININE (test code = 2214) 0.66 MG/DL eGFR AMER. (test cod e = 89511) 141 ML/MIN/1.73 eGFR NON- AMER. (test code = 38257) 122 ML/MIN/1.73 CALC BUN/CREAT (test code = [...] code = 2219) 59 U/L COMPREHENSIVE METABOLIC [id number] 00:00:00* Test Item Value Reference Range Interpretation Comme nts GLUCOSE (test code = 2217) 107 MG/DL BUN (test code = 2208) 19 MG/DL CREATININE (test code = 2214) 0.66 MG/DL eGFR AMER. (test cod e = 06782) 141 ML/MIN/1.73 eGFR NON- AMER. (test code = 04617) 122 ML/MIN/1.73 CALC BUN/CREAT (test code = [...] ALT (test code = 2219) 59 U/L [id number] 00:00:00* Test Item Value Reference Range Interpretation Comme nts TESTOSTERONE (test code = 2830) 249 NG/DL HEMOGLOBIN [id number] 00:00:00* Test Item Value Reference Range Interpretation Comme nts HEMOGLOBIN A1c (test code = 24902) 5.9 % COMPREHENSIVE METABOLIC [id number] 00:00:00* Test Item Value Reference Range Interpretation Comme nts GLUCOSE (test code = 2217) 95 MG/DL BUN (test code = 2208) 10 MG/DL CREATININE (test code = 2214) 0.59 MG/DL eGFR AMER. (test cod e = 03259) 148 ML/MIN/1.73 eGFR NON- AMER. (test code = 27578) 128 ML/MIN/1.73 CALC BUN/CREAT (test code = [...] code = 2219) 119 U/L COMPREHENSIVE METABOLIC [id number] 00:00:00* Test Item Value Reference Range Interpretation Comme nts GLUCOSE (test code = 2217) 95 MG/DL BUN (test code = 2208) 10 MG/DL CREATININE (test code = 2214) 0.59 MG/DL eGFR AMER. (test cod e = 38191) 148 ML/MIN/1.73 eGFR NON- AMER. (test code = 41446) 128 ML/MIN/1.73 CALC BUN/CREAT (test code = [...] (test code = 2219) 119 U/L LIPID [id number] 00:00:00* Test Item Value Reference Range Interpretation Comme nts CHOLESTEROL (test code = 2210) 266 MG/DL TRIGLYCERIDES (test code = 2232) 303 MG/DL HDL CHOLESTEROL (test code = 2220) 30 MG/DL CALC LDL CHOL (test code = 2237) 175 MG/DL RISK RATIO LDL/HDL (test cod e = 2238) 5.85 RATIO LIPID [id number] 00:00:00* Test Item Value Reference Range Interpretation Comme nts CHOLESTEROL (test code = 2210) 266 MG/DL TRIGLYCERIDES (test code = 2232) 303 MG/DL HDL CHOLESTEROL (test code = 2220) 30 MG/DL CALC LDL CHOL (test code = 2237) 175 MG/DL RISK RATIO LDL/HDL (test cod e = 2238) 5.85 RATIO [id number] 00:00:00* Test Item Value Reference Range Interpretation Comme nts TSH, THIRD GENERATION (test code = 2821) 39.770 UIU/ML [id number] 00:00:00* Test Item Value Reference Range Interpretation Comme nts TSH, THIRD GENERATION (test code = 2821) 39.770 UIU/ML [id number] 00:00:00* Test Item Value Reference Range Interpretation Comme nts TSH, THIRD GENERATION (test code = 2821) 39.770 UIU/ML HEMOGLOBIN [id number] 00:00:00* Test Item Value Reference Range Interpretation Comme nts HEMOGLOBIN A1c (test code = 53291) 5.9 % HEMOGLOBIN [id number] 00:00:00* Test Item Value Reference Range Interpretation Comme nts HEMOGLOBIN A1c (test code = 40741) 5.9 % LIPID [id number] 00:00:00* Test Item Value Reference Range Interpretation Comme nts CHOLESTEROL (test code = 2210) 222 MG/DL TRIGLYCERIDES (test code = 2232) 546 MG/DL HDL CHOLESTEROL (test code = 2220) 25 MG/DL CALC LDL CHOL (test code = 2237) NOTE MG/DL RISK RATIO LDL/HDL (test cod e = 2238) (NOTE) RATIO [id number] 00:00:00* Test Item Value Reference Range Interpretation Comme nts TSH, THIRD GENERATION (test code = 2821) 4.740 UIU/ML [id number] 00:00:00* Test Item Value Reference Range Interpretation Comme nts TSH, THIRD GENERATION (test code = 2821) 4.740 UIU/ML [id number] 00:00:00* Test Item Value Reference Range Interpretation Comme nts TSH, THIRD GENERATION (test code = 2821) 4.740 UIU/ML LIPID [id number] 00:00:00* Test Item Value Reference Range Interpretation [...] MG/DL eGFR AMER. (test cod e = 01780) 154 ML/MIN/1.73 eGFR NON- AMER. (test code = 81730) 133 ML/MIN/1.73 CALC BUN/CREAT (test code = [...] MG/DL eGFR AMER. (test cod e = 78141) 154 ML/MIN/1.73 eGFR NON- AMER. (test code = 83897) 133 ML/MIN/1.73 CALC BUN/CREAT (test code = [...] ALT (test code = 2219) 37 U/L [id number] 00:00:00* Test Item Value Reference Range Interpretation Comme nts TSH (test code = 2821) 11.650 UIU/ML [id number] 00:00:00* Test Item Value Reference Range Interpretation Comme nts TSH (test code = 2821) 11.650 UIU/ML [id number] 00:00:00* Test Item Value Reference Range Interpretation Comme nts TSH (test code = 2821) 11.650 UIU/ML COMPREHENSIVE METABOLIC [id number] 00:00:00* Test Item Value Reference Range Interpretation Comme nts GLUCOSE (test code = 2217) 96 MG/DL BUN (test code = 2208) 8 MG/DL CREATININE (test code = 2214) 0.58 MG/DL eGFR AMER. (test cod e = 08422) 150 ML/MIN/1.73 eGFR NON- AMER. (test code = 69178) 129 ML/MIN/1.73 CALC BUN/CREAT (test code = [...] code = 2219) 34 U/L COMPREHENSIVE METABOLIC [id number] 00:00:00* Test Item Value Reference Range Interpretation Comme nts GLUCOSE (test code = 2217) 96 MG/DL BUN (test code = 2208) 8 MG/DL CREATININE (test code = 2214) 0.58 MG/DL eGFR AMER. (test cod e = 11891) 150 ML/MIN/1.73 eGFR NON- AMER. (test code = 25330) 129 ML/MIN/1.73 CALC BUN/CREAT (test code = [...] (test code = 2219) 34 U/L LIPID [id number] 00:00:00* Test Item Value Reference Range Interpretation Comme nts CHOLESTEROL (test code = 2210) 181 MG/DL TRIGLYCERIDES (test code = 2232) 246 MG/DL HDL CHOLESTEROL (test code = 2220) 27 MG/DL CALC LDL CHOL (test code = 2237) 105 MG/DL RISK RATIO LDL/HDL (test cod e = 2238) 3.88 RATIO LIPID [id number] 00:00:00* Test Item Value Reference Range Interpretation Comme nts CHOLESTEROL (test code = 2210) 181 MG/DL TRIGLYCERIDES (test code = 2232) 246 MG/DL HDL CHOLESTEROL (test code = 2220) 27 MG/DL CALC LDL CHOL (test code = 2237) 105 MG/DL RISK RATIO LDL/HDL (test cod e = 2238) 3.88 RATIO [id number] 00:00:00* Test Item Value Reference Range Interpretation Comme nts TSH (test code = 2821) 21.390 UIU/ML [id number] 00:00:00* Test Item Value Reference Range Interpretation Comme nts TSH (test code = 2821) 21.390 UIU/ML [id number] 00:00:00* Test Item Value Reference Range Interpretation Comme nts TSH (test code = 2821) 21.390 UIU/ML THYROID II PROFILE (T3U, T4, T7, [...] code = 2821) 0.807 UIU/ML COMPREHENSIVE METABOLIC [id number] 00:00:00* Test Item Value Reference Range Interpretation Comme nts GLUCOSE (test code = 2217) 93 MG/DL BUN (test code = 2208) 14 MG/DL CREATININE (test code = 2214) 0.65 MG/DL eGFR AMER. (test cod e = 85869) 143 ML/MIN/1.73 eGFR NON- AMER. (test code = 59855) 123 ML/MIN/1.73 CALC BUN/CREAT (test code = [...] (test code = 2219) 15 U/L LIPID [id number] 00:00:00* Test Item Value Reference Range Interpretation Comme nts CHOLESTEROL (test code = 2210) 224 MG/DL TRIGLYCERIDES (test code = 2232) 273 MG/DL HDL CHOLESTEROL (test code = 2220) 32 MG/DL CALC LDL CHOL (test code = 2237) 137 MG/DL RISK RATIO LDL/HDL (test cod e = 2238) 4.29 RATIO LIPID [id number] 00:00:00* Test Item Value Reference Range Interpretation [...] code = 2821) 12.180 UIU/ML COMPREHENSIVE METABOLIC [id number] 00:00:00* Test Item Value Reference Range Interpretation Comme nts GLUCOSE (test code = 2217) 93 MG/DL BUN (test code = 2208) 14 MG/DL CREATININE (test code = 2214) 0.65 MG/DL eGFR AMER. (test cod e = 52510) 143 ML/MIN/1.73 eGFR NON- AMER. (test code = 03063) 123 ML/MIN/1.73 CALC BUN/CREAT (test code = [...] ALT (test code = 2219) 15 U/L [id number] 00:00:00* Test Item Value Reference Range Interpretation Comme nts TSH (test code = 2821) 4.04 UIU/ML [id number] 00:00:00* Test Item Value Reference Range Interpretation Comme nts TSH (test code = 2821) 4.04 UIU/ML [id number] 00:00:00* Test Item Value Reference Range Interpretation Comme nts TSH (test code = 2821) 4.04 UIU/ML COMPREHENSIVE METABOLIC [id number] 00:00:00* Test Item Value Reference Range Interpretation Comme nts GLUCOSE (test code = 2217) 95 MG/DL BUN (test code = 2208) 17 MG/DL CREATININE (test code = 2214) 0.64 MG/DL eGFR AMER. (test cod e = 72823) 145 ML/MIN/1.73 eGFR NON- AMER. (test code = 73572) 125 ML/MIN/1.73 CALC BUN/CREAT (test code = [...] code = 2219) 34 U/L COMPREHENSIVE METABOLIC [id number] 00:00:00* Test Item Value Reference Range Interpretation Comme nts GLUCOSE (test code = 2217) 95 MG/DL BUN (test code = 2208) 17 MG/DL CREATININE (test code = 2214) 0.64 MG/DL eGFR AMER. (test cod e = 49771) 145 ML/MIN/1.73 eGFR NON- AMER. (test code = 53433) 125 ML/MIN/1.73 CALC BUN/CREAT (test code = 2235) 27 RATIO SODIUM (test code = 2231) 141 MEQ/L POTASSIUM (test code = 2228) 4.5 MEQ/L CHLORIDE (test code = 2215) 101 MEQ/L CARBON DIOXIDE (test code = 2206) 24 MEQ/L CALCIUM (test code = 2209) 9.3 MG/DL PROTEIN, TOTAL (test code = 222) 7.4 G/DL ALBUMIN (test code = 2201) 4.6 G/DL CALC GLOBULIN (test code = 2240) 2.8 G/DL CALC A/G RATIO (test code = 2234) 1.6 RATIO BILIRUBIN, TOTAL (test code = 2207) 0.3 MG/DL ALKALINE PHOSPHATASE (test code = 2204) 69 U/L AST (test code = 2218) 28 U/L ALT (test code = 2219) 34 U/L LIPID [id number] 00:00:00* Test Item Value Reference Range Interpretation Comme nts CHOLESTEROL (test code = 2210) 205 MG/DL TRIGLYCERIDES (test code = 2232) 206 MG/DL HDL CHOLESTEROL (test code = 2220) 30 MG/DL CALC LDL CHOL (test code = 2237) 134 MG/DL RISK RATIO LDL/HDL (test cod e = 2238) 4.46 RATIO LIPID [id number] 00:00:00* Test Item Value Reference Range Interpretation Comme nts CHOLESTEROL (test code = 2210) 205 MG/DL TRIGLYCERIDES (test code = 2232) 206 MG/DL HDL CHOLESTEROL (test code = 2220) 30 MG/DL CALC LDL CHOL (test code = 2237) 134 MG/DL RISK RATIO LDL/HDL (test cod e = 2238) 4.46 RATIO HEMOGLOBIN [id number] 00:00:00* Test Item Value Reference Range Interpretation Comme nts HEMOGLOBIN A1c (test code = 52630) 5.8 % HEMOGLOBIN [id number] 00:00:00* Test Item Value Reference Range Interpretation Comme nts HEMOGLOBIN A1c (test code = 15274) 5.8 % HEMOGLOBIN [id number] 00:00:00* Test Item Value Reference Range Interpretation Comme nts HEMOGLOBIN A1c (test code = 08771) 5.8 % [id number] 00:00:00* Test Item Value Reference Range Interpretation Comme nts TSH (test code = 2821) 12.44 UIU/ML [id number] 00:00:00* Test Item Value Reference Range Interpretation Comme nts TSH (test code = 2821) 12.44 UIU/ML [id number] 00:00:00* Test Item Value Reference Range Interpretation Comme nts TSH (test code = 2821) 12.44 UIU/ML THYROID II PROFILE (T3U, T4, T7, [...] (test code = 2821) 8.9 UIU/ML HEMOGLOBIN [id number] 00:00:00* Test Item Value Reference Range Interpretation Comme nts HEMOGLOBIN A1c (test code = 64553) 6.0 % HEMOGLOBIN [id number] 00:00:00* Test Item Value Reference Range Interpretation Comme nts HEMOGLOBIN A1c (test code = 85733) 6.0 % COMPREHENSIVE METABOLIC [id number] 00:00:00* Test Item Value Reference Range Interpretation Comme nts GLUCOSE (test code = 2217) 100 MG/DL BUN (test code = 2208) 21 MG/DL CREATININE (test code = 2214) 0.54 MG/DL eGFR AMER. (test cod e = 61851) 155 ML/MIN/1.73 eGFR NON- AMER. (test code = 35647) 134 ML/MIN/1.73 CALC BUN/CREAT (test code = [...] code = 2219) 50 U/L COMPREHENSIVE METABOLIC [id number] 00:00:00* Test Item Value Reference Range Interpretation Comme nts GLUCOSE (test code = 2217) 100 MG/DL BUN (test code = 2208) 21 MG/DL CREATININE (test code = 2214) 0.54 MG/DL eGFR AMER. (test cod e = 39288) 155 ML/MIN/1.73 eGFR NON- AMER. (test code = 41285) 134 ML/MIN/1.73 CALC BUN/CREAT (test code = [...] (test code = 2219) 50 U/L LIPID [id number] 00:00:00* Test Item Value Reference Range Interpretation Comme nts CHOLESTEROL (test code = 2210) 250 MG/DL TRIGLYCERIDES (test code = 2232) 254 MG/DL HDL CHOLESTEROL (test code = 2220) 29 MG/DL CALC LDL CHOL (test code = 2237) 170 MG/DL RISK RATIO LDL/HDL (test cod e = 2238) 5.87 RATIO LIPID [id number] 00:00:00* Test Item Value Reference Range Interpretation [...] code = 2821) 25.7 UIU/ML CBC W/AUTO [id number] 00:00:00* Test Item Value Reference Range Interpretation [...] code = 1015) 297 K/UL CBC W/AUTO [id number] 00:00:00* Test Item Value Reference Range Interpretation [...] code = 1015) 297 K/UL CBC W/AUTO [id number] 00:00:00* Test Item Value Reference Range Interpretation [...] (test code = 1015) 297 K/UL HEMOGLOBIN [id number] 00:00:00* Test Item Value Reference Range Interpretation Comme nts HEMOGLOBIN A1c (test code = 66499) 6.0 % Notes Date/Time Note Provider Source 2023-12-17 15:23:58 3EWKMLC2gz/SajmZyc67 8wANOiKtOkjzPn 7wMC8p3FFEkuerMvZJmaXzqBHbVmcA1901 -01-31T15:23:58 Chief ComplaintPatient presents withER F/UPatient states he went to ER due to having pain. He states he was told he has a Hernia on his right Testicle.9/10 pain reported by patient today[place] [address]-8Nphwz BlixYW5412-38-41E13:28:59Nurse NoteTXT1.2.840.206359.1.13.131.2.7 .2.473750|[id number] for patient jpgn78537-7Vznop NoteLNNARRATIVEFormatted C-CDA narrative [facility] [place] [address] [facility] [id number] [id number]:28:591.2.840.1143 50.1.72.3.15|1.2.840.367813.1.13.1 31.2.7.2.727879_[id number] [facility] 2023-12-16 00:45:23 n7bjgeLA4Wz6q7w8U8/h XHFC6oHhcdFCR0 zfXo4j/NL2T0tvgufyKSpYU5x09e2H7371 -01-30T00:45:23 Pt left before treatment complete. Pt left with PIV in place. Pt phone number has no voicemail. Pt address listed is not an actual listed address so unable to send PD to [place]. Pt alternate contact clerk has no listed phone number as well.Officer Kee [facility] notified. 50235-6Tmfojllpt department RsdhZQ0736-12-74M59:53:57[facility] NoteTXT1.2.840.336507.1.13.104.2.7 .2.811811|[id number] for patient pfei00091-4RjshJXJUDDOGNWVQfbawbru d C-CDA narrative text[id number] 69ETJGWGPFLWHWNMSPFRGSGP2534-04-59 T00:53:571.2.840.642005.1.72.3.15| 1.2.840.296532.1.13.104.2.7.2.7278 [id number] [facility] 2023-12-15 19:01:11 dVxZuXW9wZkGQqJwa9uY XQcdWriGXR/1tW JBcsqJ4Fq203E/zzzzOtH0EoQPpGHG8775 -01-29T19:01:11 Pt arrived ambulatory with complaints of R sided inguinal hernia diagnosed this weekend at [facility]. Pt states the pain has gotten worse since yesterday and its getting harder to walk.Pt was told to follow up with PCP but he is waiting for his insurance to kick in.No urinary complaints 18131-1[facility] Triage ncwaTS8801-15-07U61:03:08[facility] Triage noteTXT1.2.840.114444.1.13.104.2.7 .2.234684|[id number] for patient xdcz69736-7Skqadoclt department NoteLNNARRATIVEFormatted C-CDA narrative [id number] ENGLISH[address] H[id number] 28YPWZXRBZZCDRFJHWHETIFD4820-07-44 T19:03:081.2.840.841628.1.72.3.15| 1.2.840.742179.1.13.104.2.7.2.7278 [id number] Soumyamerlin Tran RN [facility]"
[2023-12-17 19:31] LABS: Absolute Lymphocytes (CBC) 1.8 K/uL (0.7-4.9); Hematocrit 37.7 % (39.6-49.0); Lymphocytes % 9.7 % (15.3-44.8); MCV 89.7 fL (80-100); MPV 7.2 fL (7.6-11.3); Platelets 333 thou/uL (152-406)
--- NOTE | 2023-12-17 19:36 | RAD REPORT ---
EXAM DESCRIPTION: US - Scrotum Testicles - 12/17/2023 7:24 pm CLINICAL HISTORY: Testicular pain COMPARISON: None FINDINGS: Right testicle 4 x 3.3 x 3.3 measures centimeters. Echotexture is homogeneous. Increased blood flow Left testicle measures 3.4 x 2.7 x 2.8 centimeters. Echotexture is homogeneous. Normal blood flow Right epididymis is increased in size with increased blood flow. A 2 millimeter left spermatocele Small to moderate complex right hydrocele IMPRESSION: Right epididymitis/orchitis Small to moderate complex right hydrocele
[2023-12-17 20:00] LABS: Specific Gravity 1.021 (1.005-1.030); Urine Bacteria <20 /HPF (<20); Urine Bilirubin NEGATIVE (Negative); Urine Blood Negative (Negative); Urine Clarity Extremely Turbid (Clear); Urine Color Yellow (Yellow); Urine Glucose NEGATIVE (Negative); Urine Mucus Slight /HPF (None Seen); Urine Protein 1+ (Negative); Urine Urobilinogen 2+ (Normal); Urine WBC Clump Occasional /HPF (None Seen)
[2023-12-17 20:08] LABS: Albumin 3.3 g/dL (3.4-5.0); Bilirubin Total 0.6 mg/dL (0.2-1.0); Potassium 3.5 mEq/L (3.5-5.1); Protein, Total 7.9 g/dL (6.4-8.2)
--- NOTE | 2023-12-17 20:11 | EDPHYS ---
Physician Documentation [facility] Name: Reese Ramos Age: 43 yrs Sex: Male : 1980 Arrival Date: 12/17/2023 Time: 18:14 Bed 14 Private MD: ED Physician Ladarius Bonds HPI: 12/17 18:56 This 43 yrs old Male presents to ER via Ambulatory with complaints of chuck Testicular Pain. 18:56 The patient presents with scrotal pain, of the right side, swelling, tenderness. Onset: chuck The symptoms/episode began/occurred 3 day(s) ago. Modifying factors: The symptoms are alleviated by nothing, the symptoms are aggravated by movement, pressure. Associated signs and symptoms: The patient has no apparent associated signs or symptoms. Severity of symptoms: At their worst the symptoms were moderate, in the emergency department the symptoms are actually worse, mildly. The patient has not experienced similar symptoms in the past. Historical: - Allergies: 18:28 No Known Allergies; ll1 - PSHx: 18:28 Left AKA; RIGHT BKA; ll1 - Immunization history:: Adult Immunizations up to date. - Social history:: Smoking status: Patient denies any tobacco usage or history of. - Family history:: not pertinent. ROS: 18:56 Constitutional: Negative for fever, chills, and weight loss, Eyes: Negative for injury, chuck pain, redness, and discharge, ENT: Negative for injury, pain, and discharge, Neck: Negative for injury, pain, and swelling, Cardiovascular: Negative for chest pain, palpitations, and edema, Respiratory: Negative for shortness of breath, cough, wheezing, and pleuritic chest pain, Abdomen/GI: Negative for abdominal pain, nausea, vomiting, diarrhea, and constipation, Back: Negative for injury and pain, MS/Extremity: Negative for injury and deformity, Skin: Negative for injury, rash, and discoloration, Neuro: Negative for headache, weakness, numbness, tingling, and seizure, Psych: Negative for depression, anxiety, suicide ideation, homicidal ideation, and hallucinations, Allergy/Immunology: Negative for hives, rash, and allergies, Endocrine: Negative for neck swelling, polydipsia, polyuria, polyphagia, and marked weight changes, Hematologic/Lymphatic: Negative for swollen nodes, abnormal bleeding, and unusual bruising, 18:56 : Positive for testicular pain of the right testicle, Exam: 18:56 Constitutional: This is a well developed, well nourished patient who is awake, alert, chuck and in no acute distress. Head/Face: Normocephalic, atraumatic. Eyes: Pupils equal round and reactive to light, extra-ocular motions intact. Lids and lashes normal. Conjunctiva and sclera are non-icteric and not injected. Cornea within normal limits. Periorbital areas with no swelling, redness, or edema. ENT: Nares patent. No nasal discharge, no septal abnormalities noted. Tympanic membranes are normal and external auditory canals are clear. Oropharynx with no redness, swelling, or masses, exudates, or evidence of obstruction, uvula midline. Mucous membranes moist. Neck: Trachea midline, no thyromegaly or masses palpated, and no cervical lymphadenopathy. Supple, full range of motion without nuchal rigidity, or vertebral point tenderness. No Meningismus. Chest/axilla: Normal chest wall appearance and motion. Nontender with no deformity. No lesions are appreciated. Cardiovascular: Regular rate and rhythm with a normal S1 and S2. No gallops, murmurs, or rubs. Normal PMI, no JVD. No pulse deficits. Respiratory: Lungs have equal breath sounds bilaterally, clear to auscultation and percussion. No rales, rhonchi or wheezes noted. No increased work of breathing, no retractions or nasal flaring. Abdomen/GI: Soft, non-tender, with normal bowel sounds. No distension or tympany. No guarding or rebound. No evidence of tenderness throughout. Back: No spinal tenderness. No costovertebral tenderness. Full range of motion. Skin: Warm, dry with normal turgor. Normal color with no rashes, no lesions, and no evidence of cellulitis. MS/ Extremity: Pulses equal, no cyanosis. Neurovascular intact. Full, normal range of motion. Neuro: Awake and alert, GCS 15, oriented to person, place, time, and situation. Cranial nerves II-XII grossly intact. Motor strength 5/5 in all extremities. Sensory grossly intact. Cerebellar exam normal. Normal gait. Psych: Awake, alert, with orientation to person, place and time. Behavior, mood, and affect are within normal limits. 18:56 : CVA tenderness, is absent, Male external genitalia: erythema, of the right testicle is seen, that is moderate, Bladder: is normal, Sexual behavior: the patient is sexually active, and reports a single partner, Vital Signs: 18:27 BP 153 / 80; Pulse 114; Resp 20; Temp 98; Pulse Ox 95% ; Weight 97.07 kg; Height 5 ft. ll1 6 in. ; 18:30 BP 133 / 72; Pulse 109; Resp 16; Pulse Ox 96% on R/A; me1 19:30 BP 107 / 62; Pulse 97; Resp 16; Pulse Ox 98% on R/A; me1 20:30 BP 96 / 51; Pulse 86; Resp 18; Pulse Ox 98% ; me1 20:30 BP 98 / 44; Pulse 79; Resp 16; Pulse Ox 98% ; me1 21:30 BP 102 / 44; Pulse 82; Resp 16; Pulse Ox 95% on R/A; me1 21:53 BP 121 / 68; Pulse 81; Resp 18; Pulse Ox 96% on R/A; me1 18:27 Body Mass Index 34.54 (97.07 kg, 167.64 cm) ll1 MDM: 18:36 Patient medically screened. chuck 19:00 Differential diagnosis: nonspecific abdominal pain, UTI, prostatitis, urethritis. Data chuck reviewed: vital signs, nurses notes, lab test result(s), radiologic studies, ultrasound. Consideration of Admission/Observation Escalation of care including admission/observation considered. I considered the following discharge prescriptions or medication management in the emergency department Medications were administered in the Emergency Department. See MAR. Test considered but Not performed: CT: no ct done. 20:08 Historians other than the Patient: Family Member: well in formed. 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 Counseling: I had a detailed discussion with the patient and/or guardian regarding the historical points, exam findings, and any diagnostic results supporting the discharge/admit diagnosis, lab results, radiology results, the need for outpatient follow up, for definitive care, a urologist, OSMANI CASTELAN, OK TO TREAT OUTPATIENT WITH CLOSE FOLLOW UP. 12/17 18:40 Order name: CBC with Diff; Complete Time: 19:47 [facility] 12/17 18:40 Order name: Comprehensive Metabolic Panel; Complete Time: 20:10 [facility] 12/17 18:40 Order name: Urinalysis w/ reflexes; Complete Time: 20:07 [facility] 12/17 19:01 Order name: Urine Culture [facility] 12/17 18:40 Order name: US Scrotum Testicles; Complete Time: 19:47 [facility] 12/17 20:02 Order name: Sabac. Order: please get ua; Complete Time: 20:08 [facility] Administered Medications: 19:39 Drug: NS 0.9% IV 1000 ml IV at 1 bolus Per protocol; 1000 mL bolus Route: IV; Rate: 1 me1 bolus; Site: right antecubital; 21:30 Follow up: IV Status: Completed infusion; IV Intake: 1000ml me1 19:41 Drug: levofloxacin IVPB 750 mg 150 ml IVPB once over 90 mins Volume: 150 ml; Route: me1 IVPB; Infused Over: 90 mins; Site: right antecubital; 21:10 Follow up: Response: No adverse reaction; IV Status: Completed infusion me1 19:41 Drug: Ketorolac IVP 30 mg IVP once Route: IVP; Site: right antecubital; me1 19:42 Follow up: Response: No adverse reaction; Pain is decreased me1 19:41 Drug: morphine IVP or IV 4 mg IVP once over 4 mins Route: IVP; Infused Over: 4 mins; me1 Site: right antecubital; 19:42 Follow up: Response: No adverse reaction; Pain is decreased me1 19:41 Drug: Ondansetron IVP 4 mg IVP once; over 2 minutes Route: IVP; Site: right antecubital;me1 19:42 Follow up: Response: No adverse reaction; Nausea is decreased me1 19:42 Drug: Rocephin IV 1 grams IV at per protocol once; Given slow IV push per pharmacy me1 instructions Route: IV; Rate: per protocol; Site: right antecubital; 19:42 Follow up: Response: No adverse reaction; IV Status: Completed infusion me1 20:59 Drug: NS 0.9% IV 1000 ml IV at 1 bolus Per protocol; 1000 mL bolus Route: IV; Rate: 1 me1 bolus; Site: right antecubital; 21:51 Follow up: IV Status: Completed infusion; IV Intake: 1000ml me1 20:59 Drug: Trimethoprim-Sulfamethoxazole PO (160 mg-800 mg (DS) 1 tablet PO once Route: PO; me1 21:30 Follow up: Response: No adverse reaction me1 21:00 Drug: Rocephin IV 1 grams IV at per protocol once; Given slow IV push per pharmacy me1 instructions {Note: clarified with Dr Bonds that patient is to receive 2 gm of rocephin. .} Route: IV; Rate: per protocol; Site: right antecubital; 21:02 Follow up: Response: No adverse reaction; IV Status: Completed infusion me1 21:00 Drug: AZITHromycin PO 1 grams PO once Route: PO; me1 21:30 Follow up: Response: No adverse reaction me1 Disposition Summary: 12/17/23 20:11 Discharge Ordered Notes: Location: Home [facility] Problem: new [facility] Symptoms: have improved chuck Condition: Stable [facility] Diagnosis - Epididymo-orchitis chuck - Elevated white blood cell count chuck - Hydrocele, unspecified - right , large chuck - UTI/ Urinary tract infection, site not specified chuck Followup: chuck - With: Private Physician - When: 2 - 3 days - Reason: Recheck today's complaints, Continuance of care, Re-evaluation by your physician Followup: chuck - With: Dallas Castelan MD - When: 2 - 3 days - Reason: Recheck today's complaints, Re-evaluation by your physician Discharge Instructions: - Discharge Summary Sheet chuck - Epididymitis chuck - Orchitis chuck - Urinary Tract Infection, Adult chuck - Urinary Tract Infection, Adult, [id number] chuck - Hydrocele, Adult chuck - Testicular Self-Exam, [id number] [facility] Forms: - Medication Reconciliation Form [facility] - Thank You Letter [facility] - Antibiotic Education [facility] - Prescription Opioid Use [facility] - Patient Portal Instructions [facility] - Leadership Thank You Letter [facility] Prescriptions: - acetaminophen-codeine 300-15 mg Oral tablet - take 2 tablet ORAL route every 6 hours; 20 tablet; Refills: 0, Product chuck Selection Permitted - Ibuprofen 600 mg Oral Tablet - take 1 tablet ORAL route every 6 hours As needed take with food; 30 tablet; [facility] Refills: 0, Product Selection Permitted - Bactrim DS 800-160 mg Oral Tablet - take 1 tablet ORAL route every 12 hours for 10 days; 20 tablet; Refills: 0, [facility] Product Selection Permitted - levofloxacin 750 mg Oral tablet - take 1 tablet ORAL route once daily; 10 tablet; Refills: 0, Product Selection [facility] Permitted Signatures: DispLadarius Kohli MD MD cha Lewis, Lynsay RN RN ll1 Tawnya Elliott RN RN me1
--- NOTE | 2023-12-17 20:11 | ER ---
Nurse's Notes [facility] Name: Reese Ramos Age: 43 yrs Sex: Male : 1980 Arrival Date: 12/17/2023 Time: 18:14 Bed 14 Private MD: Diagnosis: Epididymo-orchitis;Elevated white blood cell count;Hydrocele, unspecified-right , large;UTI/ Urinary tract infection, site not specified Presentation: 12/17 18:27 Chief complaint: Patient states: SENT BY PCP FOR TESTICULAR PAIN 2/2 R TESTE TUMOR. ll1 Coronavirus screen: At this time, the client does not indicate any symptoms associated with coronavirus-19. Ebola Screen: No symptoms or risks identified at this time. Initial Sepsis Screen: Does the patient meet any 2 criteria? No. Patient's initial sepsis screen is negative. Does the patient have a suspected source of infection? No. Patient's initial sepsis screen is negative. Risk Assessment: Do you want to hurt yourself or someone else? Patient reports no desire to harm self or others. Onset of symptoms is unknown. 18:27 Method Of Arrival: Ambulatory ll1 18:27 Acuity: JEREMIAS 3 ll1 Triage Assessment: 18:28 General: Appears uncomfortable, Behavior is calm, cooperative, appropriate for age. ll1 Pain: Complains of pain in pelvis. Historical: - Allergies: 18:28 No Known Allergies; ll1 - PSHx: 18:28 Left AKA; RIGHT BKA; ll1 - Immunization history:: Adult Immunizations up to date. - Social history:: Smoking status: Patient denies any tobacco usage or history of. - Family history:: not pertinent. Screenin:27 [facility] ED Fall Risk Assessment (Adult) History of falling in the last 3 months, me1 including since admission No falls in past 3 months (0 pts) Confusion or Disorientation No (0 pts) Intoxicated or Sedated No (0 pts) Impaired Gait Yes (1 pt) Mobility Assist Device Used Yes (1 pt) Altered Elimination No (0 pt) Score/Fall Risk Level 3 or more points = High Risk Maintained a safe environment, Hourly rounding (assess needs \T\ fall precautionary measures) done, Used ambulatory aids as needed (educated on \T\ assisted with). Abuse screen: Denies threats or abuse. Nutritional screening: No deficits noted. Tuberculosis screening: No symptoms or risk factors identified. Assessment: 18:27 General: Appears uncomfortable, well groomed, well developed, well nourished. General: me1 Reports Sent by PCP to r/o tumor due to increased swelling to right testicle. Edema started on Jabier. Pain: Complains of pain in right testicle and groin and pelvis Pain does not radiate. Pain currently is 8 out of 10 on a pain scale. Quality of pain is described as throbbing, Pain began gradually, 2-3 days ago. Is continuous. Neuro: Level of Consciousness is awake, alert, obeys commands, Oriented to person, place, time, situation, Appropriate for age. Cardiovascular: Capillary refill < 3 seconds Patient's skin is warm and dry. Respiratory: Airway is patent Trachea midline Respiratory effort is even, unlabored, Respiratory pattern is regular, symmetrical. : Swelling noted on scrotum. Vital Signs: 18:27 BP 153 / 80; Pulse 114; Resp 20; Temp 98; Pulse Ox 95% ; Weight 97.07 kg; Height 5 ft. ll1 6 in. ; 18:30 BP 133 / 72; Pulse 109; Resp 16; Pulse Ox 96% on R/A; me1 19:30 BP 107 / 62; Pulse 97; Resp 16; Pulse Ox 98% on R/A; me1 20:30 BP 96 / 51; Pulse 86; Resp 18; Pulse Ox 98% ; me1 20:30 BP 98 / 44; Pulse 79; Resp 16; Pulse Ox 98% ; me1 21:30 BP 102 / 44; Pulse 82; Resp 16; Pulse Ox 95% on R/A; me1 21:53 BP 121 / 68; Pulse 81; Resp 18; Pulse Ox 96% on R/A; me1 18:27 Body Mass Index 34.54 (97.07 kg, 167.64 cm) ll1 ED Course: 18:15 Patient arrived in ED. rg4 18:27 Patient has correct armband on for positive identification. Placed in gown. Bed in low me1 position. Call light in reach. Side rails up X2. Provided Education on: POC. Verbalized understanding. . 18:27 No provider procedures requiring assistance completed. me1 18:28 Triage completed. ll1 18:28 Arm band placed on. ll1 18:29 Ladarius Bonds MD is Attending Physician. ll1 19:06 Tawnya Elliott, CATHERINE is Primary Nurse. me1 19:18 US Scrotum Testicles Sent. me1 19:24 US Scrotum Testicles In Process Unspecified. EDMS 19:25 Inserted saline lock: 20 gauge in right antecubital area, using aseptic technique. me1 19:25 Comprehensive Metabolic Panel Sent. me1 19:25 CBC with Diff Sent. me1 20:11 Dallas Castelan MD is Referral Physician. chuck 21:58 IV discontinued, intact, bleeding controlled, No redness/swelling at site. Pressure me1 dressing applied. Administered Medications: 19:39 Drug: NS 0.9% IV 1000 ml IV at 1 bolus Per protocol; 1000 mL bolus Route: IV; Rate: 1 me1 bolus; Site: right antecubital; 21:30 Follow up: IV Status: Completed infusion; IV Intake: 1000ml me1 19:41 Drug: levofloxacin IVPB 750 mg 150 ml IVPB once over 90 mins Volume: 150 ml; Route: me1 IVPB; Infused Over: 90 mins; Site: right antecubital; 21:10 Follow up: Response: No adverse reaction; IV Status: Completed infusion me1 19:41 Drug: Ketorolac IVP 30 mg IVP once Route: IVP; Site: right antecubital; me1 19:42 Follow up: Response: No adverse reaction; Pain is decreased me1 19:41 Drug: morphine IVP or IV 4 mg IVP once over 4 mins Route: IVP; Infused Over: 4 mins; me1 Site: right antecubital; 19:42 Follow up: Response: No adverse reaction; Pain is decreased me1 19:41 Drug: Ondansetron IVP 4 mg IVP once; over 2 minutes Route: IVP; Site: right antecubital;me1 19:42 Follow up: Response: No adverse reaction; Nausea is decreased me1 19:42 Drug: Rocephin IV 1 grams IV at per protocol once; Given slow IV push per pharmacy me1 instructions Route: IV; Rate: per protocol; Site: right antecubital; 19:42 Follow up: Response: No adverse reaction; IV Status: Completed infusion me1 20:59 Drug: NS 0.9% IV 1000 ml IV at 1 bolus Per protocol; 1000 mL bolus Route: IV; Rate: 1 me1 bolus; Site: right antecubital; 21:51 Follow up: IV Status: Completed infusion; IV Intake: 1000ml me1 20:59 Drug: Trimethoprim-Sulfamethoxazole PO (160 mg-800 mg (DS) 1 tablet PO once Route: PO; me1 21:30 Follow up: Response: No adverse reaction me1 21:00 Drug: Rocephin IV 1 grams IV at per protocol once; Given slow IV push per pharmacy me1 instructions {Note: clarified with Dr Bonds that patient is to receive 2 gm of rocephin. .} Route: IV; Rate: per protocol; Site: right antecubital; 21:02 Follow up: Response: No adverse reaction; IV Status: Completed infusion me1 21:00 Drug: AZITHromycin PO 1 grams PO once Route: PO; me1 21:30 Follow up: Response: No adverse reaction me1 Medication: 18:27 VIS not applicable for this client. me1 Intake: 21:30 IV: 1000ml; Total: 1000ml. me1 21:51 IV: 1000ml; Total: 2000ml. me1 Outcome: 20:11 Discharge ordered by . chuck 21:58 Discharged to home ambulatory, with family, me1 21:58 Condition: stable 21:58 Discharge instructions given to patient, significant other, Instructed on discharge instructions, follow up and referral plans. medication usage, Demonstrated understanding of instructions, follow-up care, medications, Prescriptions given X 4, 21:58 Patient left the ED. me1 Signatures: Dispatcher [employer] Ladarius Pina MD MD cha Garcia, Rubi rg4 Jovita Espinal RN RN 1 Tawnya Elloitt RN RN me1 Corrections: (The following items were deleted from the chart) 19:48 18:27 Ebola Screen: No symptoms or risks identified at this time. 1 me1
[2023-12-18 01:16] VITALS: BP 121/68; TEMP 98; O2SAT 96
== END ==
LOC: ER 18:14
DX: N45.3 Epididymo-orchitis (principal); N39.0 Urinary tract infection, site not specified; N43.3 Hydrocele, unspecified; D72.829 Elevated white blood cell count, unspecified; Z89.612 Acquired absence of left leg above knee; Z89.511 Acquired absence of right leg below knee
CPT/HCPCS: 36415; 76870; 80053; 81001; 85025; 87086; 87088; J0696; J2405; J7030